=== PATIENT | male | born 1980 | race Caucasian/White ===

== ENCOUNTER 2019-12-02 23:07 | Emergency (ER) | payer MEDICAID, SELFPAY ==
--- NOTE | ~2019-12-02 | XR_ITS ---
EXAMINATION: XR chest 2V DATE: 12/02/2019 23:54 INDICATION: Cough TECHNIQUE: PA and lateral views of the chest are obtained. COMPARISON: 09/27/2011 FINDINGS: There is a subtle opacity of the left lung base. There is no pleural effusion or pneumothor ax. The cardiomediastinal silhouette is normal. The visualized bones and soft tissues are unremarkabl e. IMPRESSION: 1. Subtle left basilar opacity, consistent with atelectasis versus pneumonia. Reviewed, dictated and finalized at location A.
[2019-12-02 23:14] VITALS: BP 150/81; PULSE 89; RESP 16; TEMP 36.4; O2SAT 100
--- NOTE | 2019-12-02 23:41 | ED.URI ---
HPI - URI/Sore Throat General Chief Complaint: Upper Respiratory Infection Stated Complaint: i have weaver virus , cough Time Seen by Provider: 12/02/19 23:41 Source: patient Mode of arrival: ambulatory Limitations: no limitations History of Present Illness HPI Narrative: A 39 y/o male presents to the ED with c/o a cough and sneezing for 1 week. Pt notes he has been around his father who has been sick with bronchitis and pneumonia. Pt also c/o back pain due to his PMHx of scoliosis. He reports sweats and marijuana use, but denies numbness/tingling. Onset (ago): week(s) (1) Context: sick contacts Related Data Allergies Allergy/AdvReac Type Severity Reaction Status Date / Time olanzapine Allergy Mild FACIAL Verified 08/01/18 09:53 SWELLING naproxen Allergy Unknown FACIAL Verified 08/01/18 09:53 SWELLING Review of Systems Review of Systems: All systems reviewed & are unremarkable except as noted in HPI and below Constitutional: Comments: Reports: sweats ENT: Comments: Reports: sneezing Respiratory: Respiratory: Reports cough Musculoskeletal: Musculoskeletal: Reports back pain Neurologic: Comments: Denies: numbness/tingling PMFSH Past Medical History Medical History Abscess of left ear canal Anxiety Depression Panic attacks Scoliosis Surgical History Surgical History H/O removal of cyst Social History Social History (Updated 12/03/19 @ 00:01 by Cassie Bourne) Smoking packs per day: 1 Smoking cigarettes per day: 20.0 Smoking status: Current every day smoker Substance use: current Substance use type: marijuana Comments PCP: Physician cobol application developer Exam Narrative: Exam Narrative: GENERAL: Well-appearing, well-nourished, and in no acute distress. HEAD: Normocephalic, atraumatic. ENT: Mucous membranes moist. CHEST: Clear to auscultation. No respiratory distress. HEART: Regular rate and rhythm. Normal peripheral pulses. EXTREMITIES: Normal range of motion. No edema. Back: No midline tenderness of the thoracic or lumbar spine. No reproducible paraspinal tenderness either. SKIN: Warm, dry, no rash. NEURO: Alert and oriented x3. Course Course Emergency Course: Patient reports chronic back pain without acute injury. No neurologic impairment that she is reported either. Ordered Tylenol but patient refused and would like something stronger. Not indicated at this time. Flu negative. Chest x-ray with questionable pneumonia, given cough and symptoms he will be prescribed a Z-Eloy. Vital Signs Vital signs: Vital Signs Temperature 97.5 F L 12/02/19 23:14 Pulse Rate 89 12/02/19 23:14 Respiratory Rate 16 12/02/19 23:14 Blood Pressure 150/81 H 12/02/19 23:14 Pulse Oximetry 100 12/02/19 23:14 Temperature 97.5 F L 12/02/19 23:14 Pulse Rate 89 12/02/19 23:14 Respiratory Rate 16 12/02/19 23:14 Blood Pressure 150/81 H 12/02/19 23:14 Pulse Oximetry 100 12/02/19 23:14 MDM - URI/Sore Throat Lab Data Labs: Influenza A Screen Negative Reference Range: Negative Influenza B Screen Negative Reference Range: Negative Imaging Data Attestation: I personally reviewed and interpreted this imaging study as follows: Radiologist's impression: Chest X-ray: IMPRESSION: 1. Subtle left basilar opacity, consistent with atelectasis versus pneumonia. Discharge Plan Discharge Clinical Impression: Pneumonia Qualifiers: Pneumonia type: due to unspecified organism Laterality: unspecified laterality Lung location: unspecified part of lung Qualified Code(s): J18.9 - Pneumonia, unspecified organism Chronic back pain Qualifiers: Back pain location: low back pain Back pain laterality: unspecified Sciatica presence: without sciatica Qualified Code(s): M54.5 - Low back pain Patient Disposition: Home, Self-Care Condition: Stable Ins
--- NOTE | 2019-12-02 23:51 | PC.NURSE ---
pt down to xray
[2019-12-03] VITALS: O2SAT 98
--- NOTE | 2019-12-03 00:15 | PC.NURSE ---
pt requesting stronger pain medication. edp notified no further orders at this time.
[2019-12-03 00:30] VITALS: BP 123/88; PULSE 88; RESP 19; O2SAT 97
== END 2019-12-03 00:30 | disposition home or self-care (01) ==
PROVIDERS: Emergency Provider Emergency Medicine
DX: J18.9 Pneumonia, unspecified organism (principal); M54.5 Low back pain; F41.9 Anxiety disorder, unspecified; F32.9 Major depressive disorder, single episode, unspecified; M41.9 Scoliosis, unspecified; F17.210 Nicotine dependence, cigarettes, uncomplicated
CPT/HCPCS: 71046; 87804; 99283

== ENCOUNTER 2019-12-23 01:20 | Emergency (ER) | payer OTHER, SELFPAY ==
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
[2019-12-23 01:23] VITALS: BP 40/32; PULSE 95; RESP 19; TEMP 36.7; O2SAT 100
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
[2019-12-23 01:38] VITALS: BP 57/35; PULSE 108; RESP 19; O2SAT 99
[2019-12-23 01:45] VITALS: BP 62/28; PULSE 111; RESP 20; O2SAT 100
--- NOTE | 2019-12-23 01:55 | PC.NURSE ---
2 units of o negative blood given to patient as emergent release
--- NOTE | 2019-12-23 02:03 | PC.NURSE ---
100 mg ketamine given to patient by air evac rn.
[2019-12-23 02:10] VITALS: BP 83/55; PULSE 87; RESP 17; O2SAT 99
--- NOTE | 2019-12-23 02:15 | PC.NURSE ---
2 units of 0 negative blood for emergent release received from lab, both units hung by air evac staff
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
[2019-12-23 02:30] VITALS: PULSE 87
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
== END 2019-12-23 02:30 | disposition short-term general hospital (02) ==
PROVIDERS: Emergency Provider Emergency Medicine
DX: S21.131A Puncture wound without foreign body of right front wall of thorax without penetration into thoracic cavity, initial encounter (principal); S21.232A Puncture wound without foreign body of left back wall of thorax without penetration into thoracic cavity, initial encounter; S41.131A Puncture wound without foreign body of right upper arm, initial encounter; S22.31XA Fracture of one rib, right side, initial encounter for closed fracture; S27.2XXA Traumatic hemopneumothorax, initial encounter; F17.210 Nicotine dependence, cigarettes, uncomplicated; Y24.9XXA Unspecified firearm discharge, undetermined intent, initial encounter
CPT/HCPCS: 32551; 36415; 36430; 36556; 71045; 72170; 86900; 86901; 86920; 92950; 99291; C1729; C1751; J7050; P9016

== ENCOUNTER 2020-02-04 13:54 | Emergency (ER) | payer OTHER, SELFPAY ==
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
[2020-02-04 14:00] VITALS: BP 101/89; PULSE 104; RESP 18; TEMP 36.8; O2SAT 100
[2020-02-04 14:45] LABS: Basophils Absolute Auto 0.1 K/mm3 (0.0-0.1); Basophils Percent Auto 0.8 % (0.2-1.2); Eosinophils Absolute Auto 0.3 K/mm3 (0-0.3); Eosinophils Percent Auto 1.7 % (0-4.4); Hemoglobin 12.5 g/dL (14.0-18.0); Immature Granulocyte Absolute 0.72 K/mm3 (0.00-0.031); Lymphocytes Absolute Auto 2.63 K/mm3 (0.9-3.2); Lymphocytes Percent Auto 14.7 % (18.3-44.2); Mean Corpuscular HGB Conc 29.1 g/dl (32-36); Mean Corpuscular Hemoglobin 24.5 pg (26-34); Mean Corpuscular Volume 84.1 fl (80-100); Monocytes Percent Auto 5.8 % (2.6-8.5); Platelet Count Result 772 k/mm3 (150-375); Red Blood Count 5.11 M/mm3 (4.6-6.20); Red Cell Distribution Width 16.4 % (11.5-14.5); White Blood Count 17.9 K/mm3 (4.5-10.0)
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
[2020-02-04 14:59] LABS: Alanine Aminotransferase 23 U/L (4-50); Alkaline Phosphatase 144 U/L (38-126); Aspartate Amino Transferase 25 U/L (17-59); Bilirubin,Total 0.2 mg/dL (0.2-1.3); Blood Urea Nitrogen 14 mg/dL (9-20); Calcium 9.3 mg/dL (8.4-10.2); Carbon Dioxide 31 mmol/L (22-30); Chloride 101 mmol/L (98-107); Estimated CRCL calculation 123 ml/min; Estimated Glomerular Filt Rate > 60; Glucose 101 mg/dL (75-110); Potassium 4.1 mmol/L (3.4-5.0); Sodium 139 mmol/L (137-145)
[2020-02-04 15:04] LABS: Platelet Estimate Increased (Adequate)
[2020-02-04 15:05] LABS: Anisocytosis 2+ (NORMAL); Hypochromasia 1+ (NORMAL)
[2020-02-04 15:42] LABS: Add Urine Microscopic? YES; Appearance Urine Clear (Clear); Bacteria Urine Trace /hpf; Bilirubin Urine Negative (Negative); Budding Yeast Urine Present /hpf; Color Urine Yellow (Yellow); Glucose Urine UA Negative (Negative); Ketones Urine Negative (Negative); Leukocyte Esterase Ur Trace LEU/UL (Negative); Mucus Urine Rare /lpf; Nitrate Urine Negative (Negative); Protein Urine Negative (Negative); Specific Grav Ur 1.026 (1.001-1.035); Squamous Epithelial Cell Urine Occasional /hpf (Few); Urobilinogen Urine Negative mg/dL (<2.0)
[2020-02-04 15:49] LABS: Blood Urine Negative (Negative)
[2020-02-04 15:58] LABS: Lactic Acid Reflex 1.5 mmol/L (0.7-2.1)
[2020-02-04 16:08] VITALS: BP 104/58; PULSE 81; RESP 19; O2SAT 99
== END 2020-02-04 18:19 | disposition left against medical advice (07) ==
PROVIDERS: Emergency Medicine Emergency Medical Services; Emergency Provider General Practice
DX: L89.159 Pressure ulcer of sacral region, unspecified stage (principal); L03.312 Cellulitis of back [any part except buttock and flank]; G82.20 Paraplegia, unspecified; T14.8XXS Other injury of unspecified body region, sequela; W34.00XS Accidental discharge from unspecified firearms or gun, sequela; F17.210 Nicotine dependence, cigarettes, uncomplicated
CPT/HCPCS: 36415; 51701; 72193; 80053; 81001; 83605; 85025; 87040; 87086; 96365; 99284; A9270; J0690; Q9967

== ENCOUNTER 2020-05-17 16:57 | Observation (INO) | payer OTHER, SELFPAY ==
--- NOTE | ~2020-05-17 | XR_ITS ---
XR chest 1V portable DATE: 05/17/2020 19:04 INDICATION: Generalized chest pain. Shortness of breath TECHNIQUE: Portable AP chest on 05/17/2020 at 1851 hours COMPARISON: 01/02/2020 portable AP chest FINDINGS: Normal heart size. No hilar or mediastinal enlargement. There is minimal atelectasis at t he lung bases. The lungs otherwise appear clear. IMPRESSION: Minimal atelectasis at the lung bases; otherwise no active disease Reviewed, dictated and finalized at location A.
[2020-05-17 16:55] VITALS: BP 103/75; PULSE 103; RESP 18; TEMP 36.6; O2SAT 99
--- NOTE | 2020-05-17 17:27 | ECG_ITS ---
Measurements Intervals [place] Rate: 108 P: 40 OK: 129 QRS: 56 QRSD: 90 T: 54 QT: 315 QTc: 423 Interpretive Statements SINUS TACHYCARDIA ABNORMAL ECG Electronically Signed On 05-18-2020 7:06:18 CDT by Benedict Monae D.O.
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
[2020-05-17] MEDS: SODIUM CHLORIDE 0.9% IV 1,000 ML 999 ML IV CONT (17:47)
[2020-05-17] MEDS: ONDANSETRON INJ 4 MG/2 ML VIAL IV PUSH (17:48)
[2020-05-17] MEDS: MORPHINE SULFATE 4 MG/ML INJ IV PUSH (17:48)
[2020-05-17 18:03] LABS: Basophils Absolute Auto 0.1 K/mm3 (0.0-0.1); Basophils Percent Auto 0.7 % (0.2-1.2); Eosinophils Absolute Auto 0.3 K/mm3 (0-0.3); Eosinophils Percent Auto 1.6 % (0-4.4); Hematocrit 42.2 % (42.0-52.0); Hemoglobin 12.3 g/dL (14.0-18.0); Immature Granulocyte Absolute 0.42 K/mm3 (0.00-0.031); Immature Granulocyte Percent A 2.3 % (0-0.5); Lymphocytes Absolute Auto 3.98 K/mm3 (0.9-3.2); Lymphocytes Percent Auto 22.2 % (18.3-44.2); Mean Corpuscular HGB Conc 29.1 g/dl (32-36); Mean Corpuscular Hemoglobin 19.9 pg (26-34); Mean Corpuscular Volume 68.4 fl (80-100); Mean Platelet Volume 7.7 fl (7.4-10.4); Monocytes Absolute Auto 1.1 K/mm3 (0.1-0.6); Monocytes Percent Auto 6.3 % (2.6-8.5); Neutrophils Percent Auto 66.9 % (45.5-73.1); Platelet Count Result 805 k/mm3 (150-375); Red Blood Count 6.17 M/mm3 (4.6-6.20); Red Cell Distribution Width 20.8 % (11.5-14.5); White Blood Count 17.9 K/mm3 (4.5-10.0)
[2020-05-17 18:13] LABS: INR 1.1; Prothrombin Time 13.5 Seconds (11.1-14.7)
[2020-05-17 18:14] LABS: Alanine Aminotransferase 10 U/L (4-50); Albumin Level 3.7 g/dL (3.5-5.1); Alkaline Phosphatase 169 U/L (38-126); Anion Gap 9 mmol/L (8-16); Aspartate Amino Transferase 19 U/L (17-59); Bilirubin,Total 0.3 mg/dL (0.2-1.3); Blood Urea Nitrogen 13 mg/dL (9-20); Calcium 9.2 mg/dL (8.4-10.2); Carbon Dioxide 30 mmol/L (22-30); Chloride 97 mmol/L (98-107); Estimated CRCL calculation 140 ml/min; Estimated Glomerular Filt Rate > 60; Glucose 110 mg/dL (75-110); Partial Thromboplastin Time 41.5 SECONDS (22.3-36.8); Potassium 3.8 mmol/L (3.4-5.0); Sodium 136 mmol/L (137-145)
[2020-05-17 18:17] LABS: Platelet Estimate Increased (Adequate)
[2020-05-17 18:18] LABS: Hypochromasia 1+ (NORMAL); Ovalocytes 1+ (NORMAL)
[2020-05-17 18:20] LABS: Add Urine Microscopic? YES; Amorphous Sediment Urine Few; Appearance Urine Cloudy (Clear); Bacteria Urine 1+ /hpf; Bilirubin Urine Negative (Negative); Blood Urine 1+ (Negative); Color Urine Yellow (Yellow); Glucose Urine UA Negative (Negative); Ketones Urine Negative (Negative); Leukocyte Esterase Ur 3+ LEU/UL (Negative); Mucus Urine Rare /lpf; Nitrate Urine Positive (Negative); Protein Urine 1+ mg/dL (Negative); RBC Urine 21-50 /hpf (0-2); Squamous Epithelial Cell Urine Moderate /hpf (Few); Urobilinogen Urine Negative mg/dL (<2.0); WBC Urine >75 /hpf
[2020-05-17 18:26] LABS: NT Pro B Type Natriuretic Pept 21 PG/ML (5-100); Troponin I < 0.012 ng/mL (0.000-0.034)
[2020-05-17 18:29] LABS: Barbiturate Screen Urine Negative (Negative); Benzodiazepines Screen Urine Positive (Negative)
[2020-05-17 18:31] LABS: Cannabinoid Screen Urine Positive (Negative); Cocaine Screen Urine Negative (Negative); Methadone Screen Urine Negative (Negative); Opiate Screen Urine Negative (Negative); Phencyclidine Screen Urine Negative (Negative)
[2020-05-17 19:16] LABS: Amphetamine Screen Urine Positive (Negative)
[2020-05-17 19:20] VITALS: BP 107/68; PULSE 100; RESP 18; O2SAT 98
--- NOTE | 2020-05-17 19:20 | PC.NURSE ---
report received at this time. pt resting on stretcher talking on cell phone. pt VS stable, RR even and unlabored. updated on poc.
--- NOTE | 2020-05-17 19:32 | PC.NURSE ---
pt provided with water at this time.
[2020-05-17 21:14] LABS: Troponin I < 0.012 ng/mL (0.000-0.034)
[2020-05-17 21:35] VITALS: PULSE 99; RESP 18; O2SAT 100
--- NOTE | 2020-05-17 21:40 | PC.NURSE ---
pt transported up to the floor at this time with all belongings. prior to transport pt updated on poc. pt was asking what the plan was and when the doctor was going to see him. this RN explained he is going to be admitted for the chronic ulcer on his buttocks and for a consult. pt states, as long as I'm not transferred to [facility] I don't care. pt in NAD in transport and is not c/o any pain. upon getting up to the floor pt states, if I fall on the floor I'm just going to get more money from this hospital. this RN assured pt he is not going to fall on the floor and we would have more help to transfer the patient to the bed. pt moved over to bed with no difficulty and in NAD.
[2020-05-17 21:45] VITALS: BP 112/58; PULSE 94; RESP 20; TEMP 36.3; O2SAT 100
[2020-05-17 22:00] VITALS: BP 114/80; PULSE 102; RESP 18; TEMP 36.8; O2SAT 100
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
--- NOTE | 2020-05-18 01:16 | PC.NURSE ---
When patient arrived to floor from ED and staff was assisting him off ED stretcher to bed, pt states, Here is payday from me, I know you are going to drop me cause I know you 2 nurses are not smart enough to lock this stretcher. Transferred patient safely to bed. Pt immediately began yelling and cussing at staff saying, No one has done anything for me, I have been here all day and not one time have I seen a doctor or a nurse.' Attempted to explain to pt that this junior technical writer was his nurse and he states, I will take you to small claims court too, you have let me lay here all day and get this sore on my ass. Pt refused assessment, meds, and treatment. Multiple staff at different times attempted to administer care and patient kept denying all care. Charge nurse and House Charge notified. Ngoc RIDDLE notified and was in patient's room multiple times. Pt continue to refuse care and just wanted to be picked up by his girlfriend. Pt left AMA at 0005.
== END 2020-05-18 00:05 | disposition left against medical advice (07) ==
LOC: ANHED 18:42 → ANH3MEDSUR 20:15
PROVIDERS: Admitting Provider Internal Medicine; Emergency Provider Emergency Medicine; Visit Provider Internal Medicine
DX: N39.0 Urinary tract infection, site not specified (principal); L89.104 Pressure ulcer of unspecified part of back, stage 4; R33.9 Retention of urine, unspecified; G82.20 Paraplegia, unspecified; F41.9 Anxiety disorder, unspecified; F32.9 Major depressive disorder, single episode, unspecified; G62.9 Polyneuropathy, unspecified; Z91.19 Patient's noncompliance with other medical treatment and regimen
CPT/HCPCS: 36415; 51701; 71045; 80053; 80307; 81001; 83880; 84484; 85025; 85610; 85730; 87086; 87088; 93005; 96361; 96365; 96375; 99285; G0378; G0379; J0696; J2270; J2405; J7030

== ENCOUNTER 2020-10-14 22:20 | Inpatient (IN) | payer OTHER, SELFPAY ==
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
[2020-10-14 22:40] VITALS: BP 102/72; PULSE 103; RESP 20; TEMP 36.6; O2SAT 100
--- NOTE | 2020-10-14 22:48 | ECG_ITS ---
Measurements Intervals [place] Rate: 102 P: 28 [place]: 131 QRS: 51 QRSD: 91 T: 53 QT: 332 QTc: 433 Interpretive Statements SINUS TACHYCARDIA BASELINE ARTIFACT- I, II BORDERLINE ECG Electronically Signed On 10-15-2020 6:48:49 [employer] by Benedict Monae D.O.
[2020-10-14 23:00] VITALS: BP 103/67; PULSE 103; RESP 20; O2SAT 100
--- NOTE | 2020-10-14 23:46 | PC.NURSE ---
Patient refused to let me draw his blood, because i will not give him water. he also said he will sign out because he can't get water.
[2020-10-15] VITALS (9 sets, daily range): BP systolic 92–106; BP diastolic 51–66; PULSE 80–98; RESP 16–18; TEMP 36.3–36.4; O2SAT 96–100; BMI 34.1
[2020-10-15] MEDS: KETOROLAC 15 MG/ML VIAL (*BKC) IV PUSH (00:31)
[2020-10-15 00:54] LABS: Hematocrit 26.5 % (42.0-52.0); Hemoglobin 8.2 g/dL (14.0-18.0); Mean Corpuscular HGB Conc 30.9 g/dl (32-36); Mean Corpuscular Hemoglobin 20.7 pg (26-34); Mean Corpuscular Volume 66.9 fl (80-100); Platelet Count Result 727 k/mm3 (150-375); Red Blood Count 3.96 M/mm3 (4.6-6.20); Red Cell Distribution Width 17.6 % (11.5-14.5); White Blood Count 35.1 K/mm3 (4.5-10.0)
[2020-10-15 01:00] LABS: Add Urine Microscopic? YES; Appearance Urine Turbid (Clear); Bilirubin Urine Negative (Negative); Blood Urine 2+ (Negative); Color Urine Yellow (Yellow); Glucose Urine UA Negative (Negative); Ketones Urine Negative (Negative); Leukocyte Esterase Ur 3+ LEU/UL (Negative); Nitrate Urine Negative (Negative); Protein Urine 2+ mg/dL (Negative); RBC Urine >75 /hpf (0-2); Specific Grav Ur 1.012 (1.001-1.035); Urobilinogen Urine Negative mg/dL (<2.0); WBC Clumps Urine Present /HPF; WBC Urine >75 /hpf
[2020-10-15 01:05] LABS: Alanine Aminotransferase 9 U/L (4-50); Albumin Level 2.4 g/dL (3.5-5.1); Alkaline Phosphatase 219 U/L (38-126); Anion Gap 13 mmol/L (8-16); Aspartate Amino Transferase 20 U/L (17-59); Bilirubin,Total 0.3 mg/dL (0.2-1.3); Blood Urea Nitrogen 97 mg/dL (9-20); Calcium 7.5 mg/dL (8.4-10.2); Carbon Dioxide 20 mmol/L (22-30); Chloride 98 mmol/L (98-107); Estimated CRCL calculation 10 ml/min; Estimated Glomerular Filt Rate 6; Glucose 105 mg/dL (75-110); Sodium 131 mmol/L (137-145)
[2020-10-15 01:07] LABS: Lactic Acid Reflex 1.7 mmol/L (0.7-2.1)
[2020-10-15 01:17] LABS: Troponin I < 0.012 ng/mL (0.000-0.034)
[2020-10-15 01:20] LABS: Band Neutrophils Percent 9 % (0-6); Lymphocytes Absolute Manual 1.75 K/mm3 (1.1-4.5); Monocytes Absolute Manual 1.05 K/mm3 (0.1-0.90); Monocytes Percent Manual 3 % (3-9); Neutrophils Absolute Manual 32.29 K/mm3 (1.3-6.7); Neutrophils Percent Manual 83 % (46-73); Platelet Estimate Adequate (Adequate); Total Cells Counted 100
[2020-10-15 01:22] LABS: Anisocytosis 1+ (NORMAL)
[2020-10-15] MEDS: SODIUM CHLORIDE 0.9% IV 1,000 ML 999 ML IV CONT ×2 (01:45→02:45)
--- NOTE | 2020-10-15 01:45 | PC.NURSE ---
Pt had a total output of 1825ccs of recorded urine output. Pt arrived with tidwell catheter in place that was not having any urine output. When I started to deflate the 10cc balloon from old tidwell urine started to drain around inserted catheter. Once balloon was fully deflated the entire catheter was pushed out of the pt's penis by the force of the urine coming out of the bladder. Urine drained naturally at an uncontrollable speed. 8 towels were filled with urine and 5 chux. Once urine stream became less forceful a new tidwell kit was opened and a 16French tidwell catheter was placed. The catheter was pushed all the way to the very end of the catheter and a little urine became present in the tubing. My PCT assisting me, Maren inflated the balloon with 10ccs while I was holding the catheter in place. The catheter then pushed out naturally and started to drain more urine. Catheter was put in place with leg stabilization device. Upon getting CT reading, MD Ramirez instructed me to deflate the balloon again and push catheter all the way back into the bladder and reinflate the balloon with the 10CCs. Procedure was done per MD Ramirez's verbal order with read back with no complications. Urine draining more briskly after readjustment of catheter.
[2020-10-15 01:46] LABS: Lipase < 10 U/L (23-300)
[2020-10-15] MEDS: metroNIDAZOLE 500 MG/ISO 100ML 500 MG/100 ML BAG 100 MG IVPB (03:02)
[2020-10-15] MEDS: SODIUM CHLORIDE 0.9% IV 1,000 ML 250 ML IV CONT (04:28)
[2020-10-15] MEDS: SODIUM CHLORIDE 0.9% IV 500 ML 999 ML IV CONT (05:35)
--- NOTE | 2020-10-15 06:26 | ADMGEN ---
This patient, Nish Kline, was admitted to 2 Medical Room 248-01 @ 0330 10/15/20. Patient/family oriented to hospital policies and general routines including ID bracelet, bed and alarms, visiting hours, pain management, procedures, bathroom and other care routines, personal items, smoking policy, room service/diet, and visiting hours. Information on how to activate the Rapid Response Team has been discussed. Patient/Family are encouraged to report perceived risks to care and to ask questions if they do not understand what they are told or what they should do.
--- NOTE | 2020-10-15 06:37 | PC.NURSE ---
when questioning patient on his home medications pt states he is unable to afford the medications prescribed to him. He states that he uses [facility]. Per pharmacist with [employer] pt has not had any medications filled since February of 2020.
[2020-10-15] MEDS: SODIUM CHLORIDE 0.9% IV 1,000 ML 100 ML IV CONT (09:27)
--- NOTE | 2020-10-15 09:30 | PC.NURSE ---
Patient refuses to allow this nurse to assess him this AM. Patient states Fuck you and that doctor for waking me up. You aren't going to touch me. I am calling my old lady and leaving. Give me my papers to leave.
--- NOTE | 2020-10-15 10:20 | PC.NURSE ---
Pt alert and oriented to person, place, time, & situation. Spoke with patient regarding understanding of his condition and the risks associated with Acute Renal Failure, Sepsis, and Decubitus Ulcer. Pt stated that I know that I could and I'm okay with that. I can't stay here any longer. I talked to my old lady and she's coming to pick me up. She won't listen to you. I run the show. I wear the pants. Pt wearing hospital gown. Pt encouraged to listen to care team. Pt continues to interrupt when nurse, patient care nursing assistant begin speaking.
--- NOTE | 2020-10-15 10:40 | PC.NURSE ---
Patient notified of risks of leaving AMA. Dr. Kimball notified. Educated patient on need to drink plenty of fluids and follow up with primary. Patient signed AMA form. Staff assisted patient into wheelchair with appropriate safe-patient handling equipment.
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
--- NOTE | 2020-10-15 14:04 | PC.NURSE ---
Pt unwilling to share the name of his spouse/significant other. He referred to her as his old lady. This person arrived at the hospital via personal vehicle to pick him up. When she arrived, charge nurse spoke with her explaining that he was not being discharged and that he may need to be transported to another hospital due to his very serious health problems. The patient was transferred from his hospital bed to a wheelchair via a sliding board, maxi slides, bed pad using a gait belt and two nurses and three personal care techs to slide him from the wheelchair to the backseat using the above mentioned assistive devices to ensure a safe transfer across the wide gap between the wheelchair and the seat of the chair. The patient was laid on his back in the backseat and then turned to a sitting position with his legs lifted into the car. While being transferred, the patient made multiple complaints about how terrible the care at this hospital is and then he told us to leave him alone, which we did.
== END 2020-10-15 10:45 | disposition left against medical advice (07) | DRG 720 ==
LOC: ANHED 10-15 02:39 → ANH2MED 10-15 04:24
PROVIDERS: Admitting Provider Family Medicine; Emergency Provider Emergency Medicine; Visit Provider Family Medicine
DX: A41.9 Sepsis, unspecified organism (principal); N17.0 Acute kidney failure with tubular necrosis; L89.104 Pressure ulcer of unspecified part of back, stage 4; G82.20 Paraplegia, unspecified; N30.01 Acute cystitis with hematuria; R33.9 Retention of urine, unspecified; N13.9 Obstructive and reflux uropathy, unspecified; K52.9 Noninfective gastroenteritis and colitis, unspecified; F17.210 Nicotine dependence, cigarettes, uncomplicated; F41.9 Anxiety disorder, unspecified; Z28.21 Immunization not carried out because of patient refusal; Z91.19 Patient's noncompliance with other medical treatment and regimen
CPT/HCPCS: 36415; 74176; 80053; 81001; 83605; 83690; 84484; 85025; 87077; 87086; 87088; 87186; 93005; 96365; 96375; 99285; J0696; J1885; J7030; J7040

== ENCOUNTER 2021-12-19 13:07 | Emergency (ER) | payer OTHER, SELFPAY ==
--- NOTE | ~2021-12-19 | XR_ITS ---
EXAMINATION: XR chest 1V portable EXAM DATE: 12/19/2021 13:31 INDICATION: SOB TECHNIQUE: Portable AP frontal chest x-ray was obtained. Comparison is made to prior examination from 12/19/2021. FINDINGS: Small regions of linear bibasilar scarring or atelectasis. The lungs are otherwise clear. There are no pleural effusions. The cardiomediastinal silhouette is within normal limits. There is no pneumothorax suspected. The bones and soft tissues are unremarkable. IMPRESSION: Subsegmental bibasilar atelectasis or scarring. Reviewed, dictated and finalized at location A.
--- NOTE | ~2021-12-19 | CT_ITS ---
EXAMINATION: CT abdomen pelvis w con EXAM DATE: 12/19/2021 16:01 INDICATION: abd pain, large ulcers. TECHNIQUE: Spiral CT of the abdomen and pelvis was performed following intravenous injection of 100 m L Omnipaque 350. Axial, coronal and sagittal images of the abdomen and pelvis were reviewed. The do se-length product (DLP) for this examination was 653.77 mGy-cm. The exposure was tailored according to patient size (auto mA exposure control), and iterative reconstruction (ASIR) was used as additiona l dose reduction technique. Comparison is made to prior examination from 10/15/2020. FINDINGS: There is midline abdominal wall dehiscence, probably healing by secondary intention. There is a fluid collection along the greater curvature of the stomach body indicated on sagittal image 117, axial im age 61 through 84. This measures about 1.5 cm diameter by about 12 cm in craniocaudal dimension. Ther e is another lens-shaped fluid collection along the left side of the peritoneum measuring 6.5 x 1.5 x 9.0 cm (axial image 104, coronal image 76). Slightly smaller left pelvic fluid collection indicated on axial image 137, coronal image 78. These could be abscesses, hematomas, seromas. There is large am ount of colonic stool. No free intraperitoneal gas. No small bowel obstruction. Normal appendix. There is a Florian balloon/catheter in the urethra, small balloon appears to be inflated in expected lo cation of the bulbous urethra. This catheter tip does not make it to the bladder. There is large deep sacral decubitus ulceration. Liver, gallbladder, spleen, adrenal glands, pancreas are unremarkable. Mesenteric vasculature enhance s as expected. Kidneys enhance symmetrically, no hydronephrosis. IMPRESSION: 1. At least 3 loculated abdominal fluid collections, differential diagnosis including loculated absc esses, postoperative hematomas, seromas. No free intraperitoneal gas. 2. Large amount of colonic stool and gas. 3. Suprapubic catheter, another urethral catheter with tip of Florian balloon below the bladder projec ting toward the rectum (Florian had similar position on prior study). 4. Chronic sacral decubitus ulceration. 5. Other chronic findings. Reviewed, dictated and finalized at location A. IMPRESSION: 1. At least 3 loculated abdominal fluid collections, differential diagnosis in cluding loculated abscesses, postoperative hematomas, seromas. No free intraper itoneal gas. 2. Large amount of colonic stool and gas. 3. Suprapubic catheter, another urethral catheter with tip of Florian balloon be low the bladder projecting toward the rectum (Florian had similar position on ilana or study). 4. Chronic sacral decubitus ulceration. 5. Other chronic findings.
[2021-12-19 13:13] VITALS: BP 110/67; PULSE 78; RESP 18; TEMP 36.8; O2SAT 98
--- NOTE | 2021-12-19 13:38 | ED.GENADULT ---
HPI - General Adult General Chief complaint: Shortness of Breath/Dyspnea Stated complaint: cp/sob Time Seen by Provider: 12/19/21 13:13 Source: patient Mode of arrival: ambulatory Limitations: no limitations History of Present Illness HPI narrative: 41-year-old male presents emergency room by ambulance from home. Patient is got multiple medical issues. He recently had some type of bladder surgery. He is got suprapubic catheter in place. Skin diffuse decubitus ulcers which he states he is having diarrhea and feels like they are all infected now. He supposed to be on oxygen when EMS arrived he was not on home oxygen. He has got ulcerations to his lower extremities to his lower abdominal wall, into his buttock, and large open ulceration to the sacrum and lower back region. Denies any fevers. Related Data Home Medications Medication Instructions Recorded Confirmed acetaminophen [Tylenol] 325 - 500 mg PO Q6-8H PRN 02/04/20 amoxicillin-pot clavulanate 1 tablet PO BID 02/04/20 apixaban [Eliquis] 5 mg PO DAILY 02/04/20 bisacodyl 10 mg [place] DAILY PRN 02/04/20 docusate sodium [Colace] 100 mg PO DAILY 02/04/20 gabapentin 600 mg PO TID 02/04/20 hydroxyzine HCl 25 mg PO Q4-8H PRN 02/04/20 levofloxacin [Levaquin] 500 mg PO DAILY 02/04/20 methocarbamol 75 mg PO Q6-8H PRN 02/04/20 methocarbamol mg 02/04/20 Allergies Allergy/AdvReac Type Severity Reaction Status Date / Time olanzapine Allergy Mild FACIAL Verified 05/17/20 17:01 SWELLING naproxen Allergy Unknown FACIAL Verified 05/17/20 17:01 SWELLING Review of Systems Review of Systems: CONSTITUTIONAL: Denies fever, chills, or sweats. EYES: Denies visual changes, redness, or discharge. ENT: Denies rhinorrhea, congestion, sore throat, or otalgia. CARDIOVASCULAR: Denies chest pain, palpitations, or edema. RESPIRATORY: Denies cough or dyspnea. GASTROINTESTINAL: Denies nausea, vomiting, or diarrhea. Complaining of diffuse abdominal pain GENITOURINARY: Florian catheter and suprapubic catheter in place. He is got open ulcerations to his scrotum SKIN: Denies rash or itching. MUSCULOSKELETAL: Denies back pain, joint pain, or myalgia. NEUROLOGIC: Denies headache, numbness, or weakness. PSYCHIATRIC: Denies anxiety or depression. [facility] Past Medical History Medical History Abscess of left ear canal Anxiety Depression Neuropathy Panic attacks Paraplegia Sacral ulcer Scoliosis Urinary retention patient straight caths himself every couple hours. Surgical History Surgical History H/O removal of cyst Spinal surgery in prior 3 months Family History Family History Mother due to respiratory arrest Father Throat cancer Social History Social History Social History: the patient admitted to smoking marijuana. He stated that he does not use meth for amphetamines but occasionally he does take his son's Adderall. Patient stated that he does take Xanax at times. He smokes a pack a cigarettes a day. He lives with his significant other and has 2 children. He denies any alcohol use. His significant other is a durable power pump attendant for healthcare. The patient desires to be a full code. Smoking packs per day: 2 Smoking cigarettes per day: 40.0 Years smoked: 24 Smoking pack-years: 48.00 Smoking status: Current every day smoker Tobacco type: cigarettes Alcohol intake: unknown Substance use: current Substance use type: marijuana Other substance usage details: cocaine in past Last use: last smoked marijuana couple weeks ago Spiritual care concerns: No Exam Narrative: APPEARANCE: Patient is very unkempt. Appears to be in some pain. Head normocephalic and atraumatic. EYES: PERRLA/EOMI, conjunctivae very clear. NOSE: Normal
[2021-12-19] MEDS: MORPHINE SULFATE (*CRX) 4 MG/ML INJ IV PUSH ×2 (14:11→18:20)
[2021-12-19] MEDS: ONDANSETRON INJ 4 MG/2 ML VIAL IV PUSH (14:11)
[2021-12-19] MEDS: SODIUM CHLORIDE 0.9% IV 1,000 ML 999 ML IV CONT (14:12)
--- NOTE | 2021-12-19 14:15 | PC.NURSE ---
Pt states he is currently on hospice. Unsure what company he is currently using. JONH garcia made aware.
--- NOTE | 2021-12-19 14:20 | PC.NURSE ---
Mirtha , break up worker at hospice, called at [phone], redirected to emergency number at [phone]
[2021-12-19 14:42] LABS: Basophils Absolute Auto 0.1 K/mm3 (0.0-0.1); Basophils Percent Auto 0.7 % (0.2-1.2); Eosinophils Absolute Auto 0.1 K/mm3 (0-0.3); Eosinophils Percent Auto 0.5 % (0-4.4); Hematocrit 32.8 % (42.0-52.0); Hemoglobin 9.1 g/dL (14.0-18.0); Immature Granulocyte Absolute 0.14 K/mm3 (0.00-0.031); Immature Granulocyte Percent A 1.2 % (0-0.5); Lymphocytes Absolute Auto 1.87 K/mm3 (0.9-3.2); Lymphocytes Percent Auto 15.5 % (18.3-44.2); Mean Corpuscular HGB Conc 27.7 g/dl (32-36); Mean Corpuscular Hemoglobin 23.8 pg (26-34); Mean Corpuscular Volume 85.6 fl (80-100); Mean Platelet Volume 8.1 fl (7.4-10.4); Neutrophils Percent Auto 74.1 % (45.5-73.1); Platelet Count Result 645 k/mm3 (150-375); Red Blood Count 3.83 M/mm3 (4.6-6.20); Red Cell Distribution Width 25.7 % (11.5-14.5); White Blood Count 12.1 K/mm3 (4.5-10.0)
[2021-12-19 14:54] LABS: Alanine Aminotransferase 10 U/L (4-50); Albumin Level 3.3 g/dL (3.5-5.1); Alkaline Phosphatase 275 U/L (38-126); Anion Gap 9 mmol/L (8-16); Aspartate Amino Transferase 20 U/L (17-59); Bilirubin,Total 0.1 mg/dL (0.2-1.3); Blood Urea Nitrogen 14 mg/dL (9-20); Calcium 8.3 mg/dL (8.4-10.2); Carbon Dioxide 26 mmol/L (22-30); Chloride 96 mmol/L (98-107); Estimated CRCL calculation 140 ml/min; Estimated Glomerular Filt Rate > 60; Glucose 100 mg/dL (65-110); Potassium 4.1 mmol/L (3.4-5.0); Sodium 131 mmol/L (137-145)
[2021-12-19 15:02] LABS: Anisocytosis 2+ (NORMAL); Hypochromasia 1+ (NORMAL); Platelet Estimate Increased (Adequate); Target Cells 1+ (NORMAL)
[2021-12-19 15:19] LABS: INR 1.2; Prothrombin Time 14.4 Seconds (11.1-14.7)
[2021-12-19 15:20] LABS: Partial Thromboplastin Time 33.1 SECONDS (22.3-36.8)
[2021-12-19 15:46] VITALS: BP 112/65; PULSE 65; RESP 18; O2SAT 98
--- NOTE | 2021-12-19 15:48 | PC.NURSE ---
Pt cleaned up per request. CT called.
--- NOTE | 2021-12-19 15:51 | PC.NURSE ---
Hospice called and updated. They state that they have been unable to see him at home recently due to caregiving issues and a dog on premise. They state pt is on hospice d/t sepsis, osteomylitis, and wounds.
--- NOTE | 2021-12-19 16:11 | PC.NURSE ---
Pt understands he will be removed from hospice care at this time.
[2021-12-19 17:29] VITALS: BP 117/75; PULSE 97; RESP 18; O2SAT 100
--- NOTE | 2021-12-19 17:29 | PC.NURSE ---
Pt states he is willing to stay on hospice. JONH Johnson states he will call hospice back. Pt understands need to have family at home and dog put away.
--- NOTE | 2021-12-19 18:20 | PC.NURSE ---
[address] [id number]
[2021-12-19 18:59] VITALS: BP 102/88; PULSE 78; RESP 18; O2SAT 98
--- NOTE | 2021-12-19 19:04 | PC.NURSE ---
[facility] states they have an 2300 ETA
--- NOTE | 2021-12-19 20:24 | PC.NURSE ---
Spoke with patients family regarding plan of care, need for someone to be with patient and transport home.
[2021-12-19 21:00] VITALS: BP 102/88; PULSE 70; RESP 16; O2SAT 98
--- NOTE | 2021-12-19 21:21 | PC.NURSE ---
pt given juice and ice chips. Awaiting EMS at this time.
[2021-12-19 23:10] VITALS: RESP 16; O2SAT 98
--- NOTE | 2021-12-19 23:12 | PC.NURSE ---
Assuming care of pt.
--- NOTE | 2021-12-19 23:40 | PC.NURSE ---
called [facility] to update eta and it is now 100AM [facility]
[2021-12-20 00:46] VITALS: BP 104/66; PULSE 87; RESP 18; O2SAT 99
== END 2021-12-20 00:48 | disposition hospice, home (50) ==
PROVIDERS: Emergency Provider Emergency Medicine
DX: F19.10 Other psychoactive substance abuse, uncomplicated (principal); L89.154 Pressure ulcer of sacral region, stage 4; Z99.81 Dependence on supplemental oxygen; Z51.5 Encounter for palliative care; F41.9 Anxiety disorder, unspecified; F32.A Depression, unspecified; G62.9 Polyneuropathy, unspecified; G82.20 Paraplegia, unspecified; F17.210 Nicotine dependence, cigarettes, uncomplicated; Z79.899 Other long term (current) drug therapy; Z79.01 Long term (current) use of anticoagulants; Z88.8 Allergy status to other drugs, medicaments and biological substances; Z74.01 Bed confinement status
CPT/HCPCS: 36415; 71045; 74177; 80053; 83605; 85025; 85610; 85730; 87040; 96361; 96374; 96375; 96376; 99284; J2270; J2405; J7030; Q9967

== ENCOUNTER 2022-06-06 16:00 | Inpatient (IN) | payer OTHER, SELFPAY ==
[2022-06-06] VITALS (20 sets, daily range): BP systolic 101–129; BP diastolic 60–72; PULSE 103–117; RESP 9–23; TEMP 36.7; O2SAT 91–99; BMI 24.6; BMI 26.6
--- NOTE | ~2022-06-06 | XR_ITS ---
EXAMINATION: XR foot LT 2V DATE: 06/06/2022 22:53 INDICATION: Left foot infection. TECHNIQUE: 2 views of left foot were obtained. COMPARISON: None. FINDINGS: Bone alignment is normal. No fracture. There is diffuse osteopenia. There is mild osteoarth ritis of first metatarsophalangeal joint. IMPRESSION: 1. No evidence of osteomyelitis. Osteopenia decreases sensitivity. Reviewed, dictated and finalized at location A.
--- NOTE | ~2022-06-06 | XR_ITS ---
EXAMINATION: XR foot RT 2V DATE: 06/06/2022 22:53 INDICATION: Right foot infection. TECHNIQUE: 2 views of right foot were obtained. COMPARISON: None. FINDINGS: Bone alignment is normal. No fracture. There is diffuse osteopenia. There is mature periost eal new bone formation of diaphysis of fourth metacarpal, likely an old healed fracture. There is mil d osteoarthritis of first metatarsophalangeal joint. IMPRESSION: 1. No evidence of osteomyelitis. Sensitivity is decreased by osteopenia. Reviewed, dictated and finalized at location A.
--- NOTE | ~2022-06-06 | US_ITS ---
US scrotum doppler INDICATION: Testicular wound with drainage TECHNIQUE: Testicular sonogram utilizing grayscale and color Doppler FINDINGS: There is mild subcutaneous edema. The testes are normal in size and appearance. No focal l esions are seen. The right testes measures 3.3 x 2.6 x 2.1 cm centimeters, and the left testis measur es 3.5 x 2 x 2.2 cm cm. There is normal vascular flow to both testes. There are bilateral epididymal cysts. Moderate bilateral hydroceles. No evidence for varicocele. IMPRESSION: 1. Moderate bilateral hydroceles. 2: Mild subcutaneous edema. 3: Bilateral epididymal cysts. Reviewed, dictated and finalized at location A.
--- NOTE | ~2022-06-06 | XR_ITS ---
EXAMINATION: XR cystogram DATE: 06/11/2022 11:00 INDICATION: Possible fistula TECHNIQUE: Water-soluble contrast was gravity-infused through the patient's Florian catheter. Multiple fluoroscopic images were obtained. Fluoroscopy exposure time was 1.6 minutes. The DAP for this proced ure was 12.64 Gycm2. COMPARISON: CT, 06/07/2022 FINDINGS: Examination is limited by patient paralysis below the waist. No definite fistula is identif ied. Contrast appears to leak around the Florian catheter rather than through an identifiable fistula. IMPRESSION: 1. No definite fistula identified. Reviewed, dictated and finalized at location A.
--- NOTE | ~2022-06-06 | CT_ITS ---
EXAMINATION: CT abdomen pelvis w con DATE: 06/07/2022 09:12 INDICATION: Abdominal wall wound. TECHNIQUE: Computed tomography (CT) of the abdomen and pelvis was performed with 100 mL Omnipaque 350 intravenous contrast. Automated exposure control and iterative reconstruction technique were employe d. The dose-length product was 581.70 mGy-cm. COMPARISON: CT abdomen and pelvis 12/19/2021 FINDINGS: The visualized portions of the lung bases demonstrate dependent airspace and groundglass op acities. There is a staple line in right lower lobe. There is mild emphysema. There are chronic airsp donna opacities and parenchymal calcifications in lateral segment right middle lobe. There is mild atel ectasis in lingula. There are parenchymal calcifications in the dependent left lower lobe. No pleural effusion. The heart size is normal. No pericardial effusion. The liver is normal. The gallbladder is distended. The spleen, pancreas, and adrenal glands are normal. There are bilateral percutaneous nep hrostomy tubes in expected positions. There is urothelial thickening and enhancement bilaterally. The re is diffuse bladder wall thickening. The bladder is not well distended. There are no dilated loops of bowel. The appendix is normal. There is mild reactive pelvic lymphadenopathy. There is no free int raperitoneal fluid. There is absence of subcutaneous fat in the anterior lower abdomen at the midline . There are decubitus ulcers overlying the ischial tuberosities and sacrum. There is chronic remodeli ng and sclerosis of the ischial tuberosities. There are chronic erosions and sclerosis involving the sacrum and posterior left ilium. There are old healed bilateral rib fractures. There is mild thoracol umbar spondylosis. IMPRESSION: 1. Dependent airspace and groundglass opacities in the lower lobes, consistent with pneumonia. 2. Cystitis and bilateral pyelitis. 3. Chronic decubitus ulcers with chronic osteomyelitis of the ischial tuberosities, sacrum, and poste rior left ilium. Reviewed, dictated and finalized at location A. IMPRESSION: 1. Dependent airspace and groundglass opacities in the lower lobes, consistent with pneumonia. 2. Cystitis and bilateral pyelitis. 3. Chronic decubitus ulcers with chronic osteomyelitis of the ischial tuberosit ies, sacrum, and posterior left ilium.
--- NOTE | ~2022-06-06 | XR_ITS ---
EXAMINATION: XR chest 1V portable Exam Date/Time: 06/06/2022 16:30 CDT HISTORY: cough Comparison: X-ray chest and CT abdomen pelvis 12/19/2021. RESULT: Lines, tubes, and devices: None. Lungs and pleura: Bibasilar pleural calcification and scarring, otherwise clear. Cardiomediastinal silhouette: Stable. Other: No acute osseous or upper abdominal finding. IMPRESSION: No acute cardiopulmonary process. Reviewed, dictated and finalized at location K.
--- NOTE | 2022-06-06 16:18 | ECG_ITS ---
Measurements Intervals Wiley Rate: 107 P: 60 DC: 138 QRS: 36 QRSD: 100 T: 65 QT: 329 QTc: 440 Interpretive Statements SINUS TACHYCARDIA DELAYED PRECORDIAL R/S TRANSITION BORDERLINE ECG COMPARED TO ECG 10/14/2020 22:56:49 NO SIGNIFICANT CHANGES Electronically Signed On 06-06-2022 20:14:59 CDT by Benedict Monae D.O.
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
[2022-06-06 16:48] LABS: Appearance Urine Cloudy (Clear); Bilirubin Urine 1+ (Negative); Color Urine Yellow (Yellow); Glucose Urine UA Negative (Negative); Ketones Urine Negative (Negative); Leukocyte Esterase Ur 2+ LEU/UL (Negative); Nitrate Urine Negative (Negative); Protein Urine 3+ mg/dL (Negative); Urobilinogen Urine 0.2 mg/dL (<2.0); pH Urine >=9.0 (5.0-9.0)
[2022-06-06 16:54] LABS: Amorphous Sediment Urine Moderate; Bacteria Urine Trace /hpf; Mucus Urine Few /lpf; RBC Urine 21-50 /hpf (0-2); Squamous Epithelial Cell Urine Rare /hpf (Few)
[2022-06-06 16:57] LABS: Add Urine Microscopic? YES; Blood Urine Trace-Intact (Negative)
[2022-06-06 17:36] LABS: Hematocrit 38.4 % (42.0-52.0); Hemoglobin 10.8 g/dL (14.0-18.0); Mean Corpuscular HGB Conc 28.1 g/dl (32-36); Mean Corpuscular Hemoglobin 19.3 pg (26-34); Mean Corpuscular Volume 68.4 fl (80-100); Platelet Count Result 600 k/mm3 (150-375); Red Blood Count 5.61 M/mm3 (4.6-6.20); Red Cell Distribution Width 19.9 % (11.5-14.5); White Blood Count 36.9 K/mm3 (4.5-10.0)
[2022-06-06 17:49] LABS: Lactic Acid Reflex 1.9 mmol/L (0.7-2.0)
[2022-06-06 17:50] LABS: INR 1.1; Prothrombin Time 13.9 Seconds (11.1-14.7)
[2022-06-06 17:51] LABS: Partial Thromboplastin Time 41.5 SECONDS (22.3-36.8)
[2022-06-06 17:57] LABS: Alanine Aminotransferase 16 U/L (6-50); Albumin Level 3.7 g/dL (3.5-5.1); Alkaline Phosphatase 174 U/L (38-126); Anion Gap 16 mmol/L (8-16); Aspartate Amino Transferase 21 U/L (17-59); Bilirubin,Total 0.2 mg/dL (0.2-1.3); Blood Urea Nitrogen 15 mg/dL (9-20); Carbon Dioxide 24 mmol/L (22-30); Chloride 97 mmol/L (98-107); Estimated Glomerular Filt Rate > 60; Glucose 181 mg/dL (65-110); Potassium 3.7 mmol/L (3.4-5.0); Sodium 137 mmol/L (137-145)
[2022-06-06 18:02] LABS: CRP 21.8 mg/dL (<1.0)
[2022-06-06 18:09] LABS: Band Neutrophils Percent 11 % (0-6); Hypochromasia 1+ (NORMAL); Lymphocytes Absolute Manual 1.47 K/mm3 (1.1-4.5); Monocytes Absolute Manual 2.58 K/mm3 (0.1-0.90); Monocytes Percent Manual 7 % (3-9); Neutrophils Absolute Manual 32.84 K/mm3 (1.3-6.7); Neutrophils Percent Manual 78 % (46-73); Platelet Estimate Increased (Adequate); Total Cells Counted 100
[2022-06-06 18:10] LABS: Anisocytosis 2+ (NORMAL)
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
--- NOTE | 2022-06-06 23:28 | PC.NURSE ---
While doing Mr. Kline's admission he was continually falling asleep. When I began asking him about his home medications, one by one, he stated to me that he doesn't take any of his regular medications at home, and he cannot remember when he did last. I was trying to update them by going by the pharmacy list.
[2022-06-07] VITALS (9 sets, daily range): BP systolic 105–114; BP diastolic 43–61; PULSE 80–102; RESP 12–18; TEMP 36.9–37.1; O2SAT 95–98; BMI 26.6
[2022-06-07] MEDS: PIPERACILLIN/TAZOBACTAM SOD 4.5 GM in SODIUM CHLORIDE 0.9% IV 100 ML 200 ML IVPB ×4 (00:30→17:47)
[2022-06-07 06:27] LABS: Hematocrit 35.1 % (42.0-52.0); Hemoglobin 9.9 g/dL (14.0-18.0); Mean Corpuscular HGB Conc 28.2 g/dl (32-36); Mean Corpuscular Volume 67.2 fl (80-100); Mean Platelet Volume 8.5 fl (7.4-10.4); Platelet Count Result 568 k/mm3 (150-375); Red Blood Count 5.22 M/mm3 (4.6-6.20); White Blood Count 28.6 K/mm3 (4.5-10.0)
[2022-06-07] MEDS: ACETAMINOPHEN 500 MG TABLET PO (07:06)
[2022-06-07 07:11] LABS: Alanine Aminotransferase 12 U/L (6-50); Albumin Level 3.2 g/dL (3.5-5.1); Alkaline Phosphatase 177 U/L (38-126); Anion Gap 9 mmol/L (8-16); Aspartate Amino Transferase 17 U/L (17-59); Bilirubin,Total 0.4 mg/dL (0.2-1.3); Blood Urea Nitrogen 13 mg/dL (9-20); Calcium 8.5 mg/dL (8.4-10.2); Carbon Dioxide 27 mmol/L (22-30); Chloride 96 mmol/L (98-107); Estimated CRCL calculation 162 ml/min; Estimated Glomerular Filt Rate > 60; Glucose 103 mg/dL (65-110); Lactate Dehydrogenase 109 U/L (120-246); Magnesium 1.6 mg/dL (1.6-2.3); Potassium 3.8 mmol/L (3.4-5.0); Sodium 132 mmol/L (137-145)
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
[2022-06-07 07:40] LABS: Band Neutrophils Percent 3 % (0-6); Eosinophils Absolute Manual 1.43 K/mm3 (0.02-0.5); Eosinophils Percent Manual 5 % (0-4); Lymphocytes Absolute Manual 3.71 K/mm3 (1.1-4.5); Monocytes Absolute Manual 1.71 K/mm3 (0.1-0.90); Monocytes Percent Manual 6 % (3-9); Neutrophils Absolute Manual 21.73 K/mm3 (1.3-6.7); Neutrophils Percent Manual 73 % (46-73); Platelet Estimate Increased (Adequate); Schistocytes None Seen (NORMAL); Total Cells Counted 100
[2022-06-07 07:41] LABS: Anisocytosis 1+ (NORMAL); Atypical Lymphocytes Present; Hypochromasia 1+ (NORMAL)
[2022-06-07] MEDS: MORPHINE SULFATE (*CRX) 2 MG/ML INJ IV PUSH ×4 (07:42→22:14)
[2022-06-07 07:46] LABS: SARS-CoV-2 RNA PCR Negative
[2022-06-07 07:48] LABS: Glucose Point of Care 129 mg/dl (65-105)
[2022-06-07 08:09] LABS: CRP 29.9 mg/dL (<1.0)
[2022-06-07] MEDS: GABAPENTIN 300 MG CAPSULE PO ×3 (09:31→18:11)
--- NOTE | 2022-06-07 11:48 | IDPHARM ---
Subjective Pharmacy was consulted by Brenda Vences regarding infectious diseases for Nish Kline. Nish Kline is a 42 year old M with concerns regarding this patient's infection potenitally regarding his wounds or toes. Background The patient is currently receiving Vancomycin and Piperacillin/Tazobactam. The patient's PMH includes parapalegia and having these toes be blackened a few months ago and is being see at an outside hospital per provider per patient. Patient is a recent admit. Assessment/Recommendation/Discussion Discussed with provider that broad-spectrum antibiotics, given patient's history, is likely appropriate and opportunities for source control and or sampling may be beneficial in directing further the course of therapy. Thank you for the interesting consult. Flakito Davis, PharmD Infectious Disease/Antimicrobial Stewardship Pharmacist 06/07/22; 2722
[2022-06-07] MEDS: COLLAGENASE OINT 30 GM TUBE 1 APPLIC TOPICAL (12:20)
[2022-06-07] MEDS: SILVERGEL (ELTA) 45 ML 1 APPLIC TOPICAL (12:20)
--- NOTE | 2022-06-07 12:45 | PC.NURSE ---
Idalia Fernando N.P. placed 16 Azerbaijani tidwell cathether
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
[2022-06-08] VITALS (7 sets, daily range): BP systolic 104–116; BP diastolic 44–63; PULSE 89–98; RESP 18–20; TEMP 35.8–36.4; O2SAT 93–98
[2022-06-08] MEDS: PIPERACILLIN/TAZOBACTAM SOD 4.5 GM in SODIUM CHLORIDE 0.9% IV 100 ML IVPB ×2 (00:10→13:26)
[2022-06-08] MEDS: MORPHINE SULFATE (*CRX) 2 MG/ML INJ IV PUSH ×5 (02:27→20:00)
[2022-06-08] MEDS: PIPERACILLIN/TAZOBACTAM SOD 4.5 GM in SODIUM CHLORIDE 0.9% IV 100 ML 200 ML IVPB (05:28)
--- NOTE | 2022-06-08 07:17 | WPDUROPN2 ---
Progress Note: A&P Assessment and Plan (1) Cystitis: Code(s): N30.90 - Cystitis, unspecified without hematuria Status: Acute (2) Pyelitis: Code(s): N12 - Tubulo-interstitial nephritis, not specified as acute or chronic Status: Acute Assessment and Plan: Bilat. perc. nephrostomy tubes and urethral cahteter draining well and urine has cleared nicely over 24-hours / no longer purulent. Scrotal u/s unremarkable -> bilat. hydroceles and scrotal edema. Continue urinary drainage as is and f/u with urologist at [place] if he wants to replace s/p catheter. Subjective Subjective Date/Time Seen: 06/08/22 07:17 No complaints Review of Systems Respiratory: Respiratory: Denies pain on inspiration and Denies dyspnea Genitourinary: Genitourinary: Reports no additional male genitourinary complaints Exam Resp: Effort & Inspection: normal respiratory effort : Penis: Yes normal penis Scrotum: edematous Urinary Catheter: Urinary Catheter: patent and draining and urine clear Objective Data Vital Signs Vital Signs: Vital Signs - 24 hr 06/07/22 08:50 06/07/22 08:00 06/07/22 12:00 Temperature Pulse Rate 98 80 Respiratory Rate Blood Pressure Pulse Oximetry Oxygen Delivery Room Air 06/07/22 14:00 06/07/22 16:00 06/07/22 21:16 Temperature 98.4 F 98.8 F Pulse Rate 102 H 101 H 102 H Respiratory Rate 18 18 Blood Pressure 114/44 L 108/43 L Pulse Oximetry 98 95 Oxygen Delivery 06/07/22 20:00 06/07/22 20:00 06/08/22 00:00 Temperature Pulse Rate 101 H 102 H 98 Respiratory Rate 18 Blood Pressure Pulse Oximetry 95 Oxygen Delivery Room Air 06/08/22 04:00 06/08/22 06:00 Temperature 97.5 F L Pulse Rate 94 91 Respiratory Rate 18 Blood Pressure 104/58 L Pulse Oximetry 93 Oxygen Delivery Intake/Output Intake/Output: Intake & Output 06/05/22 06/06/22 06/07/22 06/08/22 23:59 23:59 23:59 23:59 Intake Total 300 2340 1040 Output Total 655 1550 Balance 300 1685 -510 Meds/Results Medications: Active Medications Generic Name Dose Route Start Last Admin Trade Name Freq PRN Reason Stop Dose Admin Acetaminophen 500 mg 06/07/22 00:08 06/07/22 07:06 Acetaminophen 500 Mg Tablet PO 500 mg Q6-8H PRN Administration Pain (Scale Score 4-6) Collagenase 1 applic 06/07/22 12:00 06/07/22 12:20 Collagenase Oint 30 Gm Tube TOPICAL 1 applic QAM CLINT Administration Gabapentin 300 mg 06/07/22 09:00 06/07/22 18:11 Gabapentin 300 Mg Capsule PO 300 mg TID CLINT Administration Hydroxyzine HCl 25 mg 06/06/22 22:38 Hydroxyzine Hcl 25 Mg Tablet PO Q6H PRN Itching Piperacillin Sod/Tazobactam 100 mls @ 200 mls/hr 06/07/22 00:00 06/08/22 05:58 Sod 4.5 gm/ Sodium Chloride IVPB Infused Q6H CLINT Infusion Vancomycin HCl 1,500 mg in 500 mls @ 333.333 mls/hr 06/07/22 10:00 06/07/22 22:36 Vancomycin 1,500 Mg/D5w 500 Ml IVPB Infused Q12H CLINT Infusion Miconazole Nitrate 1 applic 06/07/22 12:00 06/07/22 21:07 Miconazole 2% Antifungal Ointment 56 Gm TOPICAL 1 applic Q12HR CLINT Administration Morphine Sulfate 2 mg 06/07/22 07:25 06/08/22 06:54 Morphine Sulfate (*Crx) 2 Mg/Ml Inj IV PUSH 2 mg Q4H PRN Administration Pain Rated 7-10 Silver Nitrate 1 applic 06/07/22 12:00 06/07/22 12:20 Silvergel (Elta) 45 Ml TOPICAL 1 applic DAILY CLINT Administration Radiology Results: ITS Impressions Chest X-Ray 06/06/22 16:42 IMPRESSION: No acute cardiopulmonary process. Foot X-Ray 06/07/22 08:04 IMPRESSION: 1. No evidence of osteomyelitis. Osteopenia decreases sensitivity. Abdomen/Pelvis CT 06/07/22 09:13 IMPRESSION: 1. Dependent airspace and groundglass opacities in the lower lobes, consistent with pneumonia. 2. Cystitis and bilateral pyelitis. 3. Chronic decubitus ulcers with chronic osteomyelitis of the ischial tuberosities, sacrum, an
--- NOTE | 2022-06-08 08:12 | PM.IMPN ---
Progress Note: A&P Assessment and Plan (1) Overdose: Code(s): T50.901A - Poisoning by unspecified drugs, medicaments and biological substances, accidental (unintentional), initial encounter Status: Acute Assessment and Plan: UDS positive for methamphetamines, benzodiazepines and cannabinoids. Currently back to his baseline. Will monitor. (2) Leukocytosis: Code(s): D72.829 - Elevated white blood cell count, unspecified Status: Acute Assessment and Plan: CT abdomen pelvis with chronic decubitus ulcers with chronic osteomyelitis as well as ground glass opacities concerning for pneumonia. Suprapubic catheter replaced with temporary ureteral catheter and urine has cleared. UCX with mixed chad. BCX with no growth. Toe wounds open to air with no bleeding or drainage. WCX growing gram positive cocci. -Discontinue zosyn -Will continue vancomycin and follow wound cultures to narrow antibiotics for discharge (3) Necrotic toes: Code(s): I96 - Gangrene, not elsewhere classified Status: Acute Assessment and Plan: Wounds do not appear to be infected. Appreciate General Surgery recommendations. Will continue wound care and monitor. Patient will need to follow up with [facility] wound clinic after discharge. (4) Anemia: Code(s): D64.9 - Anemia, unspecified Status: Acute Assessment and Plan: Iron deficiency anemia. -Ferrous sulfate BID (5) Decubitus ulcer: Code(s): L89.90 - Pressure ulcer of unspecified site, unspecified stage Status: Acute Assessment and Plan: CT abdomen pelvis as noted above. Will continue wound care. (6) Lower obstructive uropathy: Code(s): N13.9 - Obstructive and reflux uropathy, unspecified Status: Acute Assessment and Plan: Bilateral nephrostomy tubes. Suprapubic catheter replaced by temporary uretheral catheter. Patient will need to follow up with his Urologist at [facility] for permanent replacement. -Appreciate Urology recommendations (7) Urinary retention: Code(s): R33.9 - Retention of urine, unspecified Status: Chronic Assessment and Plan: See above. (8) Paraplegia: Code(s): G82.20 - Paraplegia, unspecified Status: Chronic Assessment and Plan: Has chronic pain related to muscle spasms from paraplegia 10/18 W December 2019. -continue with gabapentin -continue with muscle relaxers (9) Anxiety: Code(s): F41.9 - Anxiety disorder, unspecified Status: Chronic Assessment and Plan: -Continue with hydroxyzine (10) Depression: Code(s): F32.9 - Major depressive disorder, single episode, unspecified Status: Chronic Assessment and Plan: Overdose was not intentional. No SI. Patient endorses running out of pain medication and taking heroine for pain relief. (11) Urinary tract infection: Qualifiers: Hematuria presence: with hematuria Urinary tract infection type: acute cystitis Qualified Code(s): N30.01 - Acute cystitis with hematuria Code(s): N39.0 - Urinary tract infection, site not specified Status: Acute Assessment and Plan: Urine culture with mixed chad. Subjective Date/time seen: 06/08/22 08:12 Patient says he still has pain. He says he feels about the same. Review of Systems Musculoskeletal: Musculoskeletal: Reports myalgias Exam Narrative: GENERAL: NAD, cooperative HEENT: Normocephalic, atraumatic, anicteric, nares clear, has round, mass on left above eye NECK:Supple CV: Normal S1, S2, RRR, No MRG RESP: CTAB, Normal work of breathing. EXTREMITIES: Toes on both fee black with thick eschar looking wounds. No visible drainage. SKIN: warm, dry and intact. NEURO:Paraplegia CN 2-12 grossly intact. Objective Data Vital Signs Vital Signs: Vital Signs - 24 hr 06/07/22 08:50 06/07/22 12:00 06/07/
[2022-06-08 08:53] LABS: Basophils Absolute Auto 0.1 K/mm3 (0.0-0.1); Basophils Percent Auto 0.3 % (0.2-1.2); Eosinophils Absolute Auto 0.5 K/mm3 (0-0.3); Eosinophils Percent Auto 2.3 % (0-4.4); Hematocrit 33.7 % (42.0-52.0); Hemoglobin 9.3 g/dL (14.0-18.0); Immature Granulocyte Absolute 0.29 K/mm3 (0.00-0.031); Immature Granulocyte Percent A 1.3 % (0-0.5); Immature Platelet Fraction Pct 1.1 % (0.9-11.2); Lymphocytes Absolute Auto 2.22 K/mm3 (0.9-3.2); Lymphocytes Percent Auto 10.3 % (18.3-44.2); Mean Corpuscular HGB Conc 27.6 g/dl (32-36); Mean Corpuscular Volume 68.8 fl (80-100); Mean Platelet Volume 8.4 fl (7.4-10.4); Monocytes Absolute Auto 1.5 K/mm3 (0.1-0.6); Monocytes Percent Auto 7.1 % (2.6-8.5); Neutrophils Absolute Auto 16.9 K/mm3 (1.3-6.7); Neutrophils Percent Auto 78.7 % (45.5-73.1); Platelet Count Result 596 k/mm3 (150-375); Reticulocyte Hemoglobin Conten 15.4 pg (28.2-35.7); Reticulocyte Percent 0.97 % (0.7-4.3); Reticulocytes Absolute 0.05 B/L (32.2-175.7); White Blood Count 21.5 K/mm3 (4.5-10.0)
[2022-06-08 09:10] LABS: Anion Gap 8 mmol/L (8-16); Blood Urea Nitrogen 10 mg/dL (9-20); Calcium 8.1 mg/dL (8.4-10.2); Carbon Dioxide 33 mmol/L (22-30); Chloride 96 mmol/L (98-107); Estimated CRCL calculation 197 ml/min; Estimated Glomerular Filt Rate > 60; Glucose 134 mg/dL (65-110); Potassium 3.9 mmol/L (3.4-5.0); Sodium 137 mmol/L (137-145)
[2022-06-08 09:16] LABS: Platelet Estimate Adequate (Adequate)
[2022-06-08 09:17] LABS: Anisocytosis 1+ (NORMAL); Hypochromasia 1+ (NORMAL); Ovalocytes 1+ (NORMAL)
[2022-06-08 09:21] LABS: Schistocytes None Seen (NORMAL)
[2022-06-08 09:37] LABS: Thyroid Stimulating Hormone 0.662 uIU/mL (0.465-4.680)
[2022-06-08] MEDS: GABAPENTIN 300 MG CAPSULE PO (09:41)
[2022-06-08] MEDS: SILVERGEL (ELTA) 45 ML 1 APPLIC TOPICAL (09:43)
[2022-06-08] MEDS: COLLAGENASE OINT 30 GM TUBE 1 APPLIC TOPICAL (09:43)
[2022-06-08 09:46] LABS: CRP 29.4 mg/dL (<1.0)
[2022-06-08 09:54] LABS: Vancomycin Trough 6.9 ug/mL (10.0-20.0)
--- NOTE | 2022-06-08 12:10 | PM.PNGS ---
Progress Note: A&P Assessment and Plan (1) Necrotic toes: Code(s): I96 - Gangrene, not elsewhere classified Status: Acute Assessment and Plan: Dry eschar or gangrene, being treated with Betadine and supportive boot. Stable. (2) Fungal dermatitis: Code(s): B36.9 - Superficial mycosis, unspecified Status: Acute Assessment and Plan: Being treated with triple antifungal cream as ordered (3) Decubitus ulcer: Code(s): L89.90 - Pressure ulcer of unspecified site, unspecified stage Status: Acute Assessment and Plan: Clean and granulating. All chronic wounds being treated as ordered. Plan Continue wound care. Patient can be discharged from my perspective. Will be eating to follow-up at [facility] for urologic problems. Wounds are unlikely to heal for reasons mentioned on consultation. Subjective Subjective Date/Time Seen: 06/08/22 12:10 Patient reports: still having pain (Wants more pain medication for diffuse pain) Review of Systems Review of Systems: All systems reviewed & are unremarkable except as noted in HPI and below (HPI and those items noted below) Constitutional: Constitutional: Denies chills and Denies fever(s) Cardiovascular: Cardiovascular: Denies chest pain, Denies diaphoresis, Denies dyspnea and Denies paroxysmal nocturnal dyspnea Respiratory: Respiratory: Denies chest congestion, Denies cough and Denies dyspnea Exam Const: General: comfortable, no acute distress, alert and awake GI: Inspection: other (Who lower abdominal wounds clean being dressed with silver gel) Back/Spine/Pelvis: Sacrum: other (Wound clean, granulating, stable) Skin: Wounds: wounds noted (Stable and being dressed as ordered-santyl and silver gel as appropriate) Extrem: Right lower extremity: foot (Toes with dry eschar being treated with Betadine and waffle boot as ordered) Left lower extremity: foot (Toes with dry eschar being treated with Betadine and waffle boot) Objective Data Vital Signs Vital Signs: Vital Signs - 24 hr 06/07/22 14:00 06/07/22 16:00 06/07/22 21:16 Temperature 36.9 C 37.1 C Pulse Rate 102 H 101 H 102 H Respiratory Rate 18 18 Blood Pressure 114/44 L 108/43 L Pulse Oximetry 98 95 Oxygen Delivery 06/07/22 20:00 06/07/22 20:00 06/08/22 00:00 Temperature Pulse Rate 101 H 102 H 98 Respiratory Rate 18 Blood Pressure Pulse Oximetry 95 Oxygen Delivery Room Air 06/08/22 04:00 06/08/22 06:00 Temperature 36.4 C L Pulse Rate 94 91 Respiratory Rate 18 Blood Pressure 104/58 L Pulse Oximetry 93 Oxygen Delivery Intake/Output Intake/Output: Intake & Output 06/05/22 06/06/22 06/07/22 06/08/22 23:59 23:59 23:59 23:59 Intake Total 300 2340 1040 Output Total 655 2475 Balance 300 0189 -2553 Meds/Results Medications: Active Medications Generic Name Dose Route Start Last Admin Trade Name Freq PRN Reason Stop Dose Admin Acetaminophen 500 mg 06/07/22 00:08 06/07/22 07:06 Acetaminophen 500 Mg Tablet PO 500 mg Q6-8H PRN Administration Pain (Scale Score 4-6) Collagenase 1 applic 06/07/22 12:00 06/08/22 09:43 Collagenase Oint 30 Gm Tube TOPICAL 1 applic QAM CLINT Administration Gabapentin 300 mg 06/07/22 09:00 06/08/22 09:41 Gabapentin 300 Mg Capsule PO 300 mg TID CLINT Administration Hydroxyzine HCl 25 mg 06/06/22 22:38 Hydroxyzine Hcl 25 Mg Tablet PO Q6H PRN Itching Piperacillin Sod/Tazobactam 100 mls @ 200 mls/hr 06/07/22 00:00 06/08/22 05:58 Sod 4.5 gm/ Sodium Chloride IVPB Infused Q6H CLINT Infusion Vancomycin HCl 2,000 mg in 500 mls @ 250 mls/hr 06/08/22 22:00 Vancomycin 2,000 Mg/D5w 500 Ml IVPB Q12H CLINT Miconazole Nitrate 1 applic 06/07/22 12:00 06/08/22 09:43 Miconazole 2% Antifungal Ointment 56 Gm TOPICAL 1 applic Q12HR CLINT Administration Morphine Sulfate 2 mg 06/07/22 07:25 06/08/22 11:21 Morphine Sulfate
[2022-06-08 12:24] LABS: Iron 14 ug/dL (49-181)
[2022-06-08 12:35] LABS: Percent Iron Saturation 6 % (20-50)
[2022-06-08] MEDS: HYDROcodone/acetaminophen (*CRX) 5-325 MG TABLET 1 TAB PO (23:26)
--- NOTE | 2022-06-08 23:57 | PC.NURSE ---
Addendum entered by AMA Baltazar 06/08/22 23:59: Patient educated on importance of anticoagulation medication and Iron supplements. Pt still refuses to take medication. Original Note: 06/08/22 1700 Ferrous Sulfate and Lovenox injection were overdue due to delay in pharmacy sending medication. When attempting to pass medications patient states I do not want to take any pills unless they are my pain medicine. patient educated on importance onm
[2022-06-09] MEDS: guaiFENesin/DEXTROMETHORPHAN 10 ML UDC PO (00:03)
[2022-06-09] MEDS: MORPHINE SULFATE (*CRX) 2 MG/ML INJ IV PUSH ×5 (00:03→17:05)
[2022-06-09 06:00] VITALS: BP 104/62; PULSE 86; RESP 18; TEMP 36.2; O2SAT 94
[2022-06-09 06:48] LABS: Basophils Absolute Auto 0.1 K/mm3 (0.0-0.1); Basophils Percent Auto 0.5 % (0.2-1.2); Eosinophils Absolute Auto 0.5 K/mm3 (0-0.3); Eosinophils Percent Auto 3.2 % (0-4.4); Hemoglobin 9.9 g/dL (14.0-18.0); Immature Granulocyte Percent A 1.3 % (0-0.5); Lymphocytes Absolute Auto 2.02 K/mm3 (0.9-3.2); Lymphocytes Percent Auto 13.6 % (18.3-44.2); Mean Corpuscular HGB Conc 26.8 g/dl (32-36); Mean Corpuscular Hemoglobin 18.5 pg (26-34); Mean Corpuscular Volume 69.2 fl (80-100); Mean Platelet Volume 8.2 fl (7.4-10.4); Monocytes Percent Auto 6.9 % (2.6-8.5); Neutrophils Absolute Auto 11.1 K/mm3 (1.3-6.7); Neutrophils Percent Auto 74.5 % (45.5-73.1); Platelet Count Result 542 k/mm3 (150-375); Red Blood Count 5.35 M/mm3 (4.6-6.20); Red Cell Distribution Width 19.2 % (11.5-14.5); White Blood Count 14.9 K/mm3 (4.5-10.0)
[2022-06-09 07:01] LABS: Anion Gap 9 mmol/L (8-16); Blood Urea Nitrogen 9 mg/dL (9-20); Calcium 8.5 mg/dL (8.4-10.2); Carbon Dioxide 31 mmol/L (22-30); Chloride 99 mmol/L (98-107); Estimated CRCL calculation 197 ml/min; Estimated Glomerular Filt Rate > 60; Glucose 127 mg/dL (65-110); Sodium 139 mmol/L (137-145)
[2022-06-09 07:18] LABS: CRP 19.5 mg/dL (<1.0)
--- NOTE | 2022-06-09 08:07 | PM.IMPN ---
Progress Note: A&P Assessment and Plan (1) Overdose: Code(s): T50.901A - Poisoning by unspecified drugs, medicaments and biological substances, accidental (unintentional), initial encounter Status: Acute Assessment and Plan: UDS positive for methamphetamines, benzodiazepines and cannabinoids. Currently back to his baseline. Will monitor. (2) Leukocytosis: Code(s): D72.829 - Elevated white blood cell count, unspecified Status: Acute Assessment and Plan: CT abdomen pelvis with chronic decubitus ulcers with chronic osteomyelitis as well as ground glass opacities concerning for pneumonia. Suprapubic catheter replaced with temporary ureteral catheter and urine has cleared. UCX with mixed chad. BCX with no growth. Toe wounds open to air with no bleeding or drainage. WCX growing gram positive cocci. Called and spoke with Gena Casiano, who said the sensitivities for the wound culture would be finished tomorrow. -Continue vancomycin (3) Necrotic toes: Code(s): I96 - Gangrene, not elsewhere classified Status: Acute Assessment and Plan: Wounds do not appear to be infected. Appreciate General Surgery recommendations. Will continue wound care and monitor. Patient will need to follow up with [facility] wound clinic after discharge. (4) Anemia: Code(s): D64.9 - Anemia, unspecified Status: Acute Assessment and Plan: -Ferrous sulfate BID (5) Decubitus ulcer: Code(s): L89.90 - Pressure ulcer of unspecified site, unspecified stage Status: Acute Assessment and Plan: CT abdomen pelvis as noted above. Will continue wound care. (6) Lower obstructive uropathy: Code(s): N13.9 - Obstructive and reflux uropathy, unspecified Status: Acute Assessment and Plan: Bilateral nephrostomy tubes. Suprapubic catheter replaced by temporary uretheral catheter. Patient will need to follow up with his Urologist at [facility] for permanent replacement. -Appreciate Urology recommendations (7) Urinary retention: Code(s): R33.9 - Retention of urine, unspecified Status: Chronic Assessment and Plan: See above. (8) Paraplegia: Code(s): G82.20 - Paraplegia, unspecified Status: Chronic Assessment and Plan: Has chronic pain related to muscle spasms from paraplegia 10/18 W December 2019. -continue with gabapentin -continue with muscle relaxers (9) Anxiety: Code(s): F41.9 - Anxiety disorder, unspecified Status: Chronic Assessment and Plan: -Continue with hydroxyzine (10) Depression: Code(s): F32.9 - Major depressive disorder, single episode, unspecified Status: Chronic Assessment and Plan: Overdose was not intentional. No SI. Patient endorses running out of pain medication and taking heroine for pain relief. (11) Urinary tract infection: Qualifiers: Hematuria presence: with hematuria Urinary tract infection type: acute cystitis Qualified Code(s): N30.01 - Acute cystitis with hematuria Code(s): N39.0 - Urinary tract infection, site not specified Status: Acute Assessment and Plan: Urine culture with mixed chad. Subjective Date/time seen: 06/09/22 08:07 Notified by nursing patient is requesting transfer to [facility]. Patient expresses concerns regarding his suprapubic catheter and the leakage of urine from his penis. Patient reports he is having significant leakage of urine and says he is lying soaked in urine every few minutes. He says as soon as the urine is cleaned, it leaks again causing him to be resoaked. Review of Systems Genitourinary: Genitourinary: Reports as per HPI Exam Narrative: GENERAL: NAD, cooperative HEENT: Normocephalic, atraumatic, anicteric, nares clear, has round, mass on left above eye NECK:Supple CV: Normal S1, S2, RRR, No MRG
[2022-06-09 08:42] LABS: Hypochromasia 1+ (NORMAL); Platelet Estimate Increased (Adequate)
[2022-06-09 08:44] LABS: Schistocytes None Seen (NORMAL)
[2022-06-09] MEDS: FERROUS SULFATE 324 MG TABLET PO ×2 (08:49→17:10)
[2022-06-09] MEDS: ENOXAPARIN 40 MG/0.4 ML SYRINGE SUB-Q (08:49)
[2022-06-09] MEDS: COLLAGENASE OINT 30 GM TUBE 1 APPLIC TOPICAL (08:50)
[2022-06-09] MEDS: GABAPENTIN 300 MG CAPSULE PO ×2 (08:50→17:10)
[2022-06-09] MEDS: SILVERGEL (ELTA) 45 ML 1 APPLIC TOPICAL (08:50)
[2022-06-09] MEDS: guaiFENesin 12 HR 600 MG TABCR PO ×2 (10:07→21:02)
[2022-06-09] MEDS: HYDROcodone/acetaminophen (*CRX) 5-325 MG TABLET 1 TAB PO (11:11)
[2022-06-09 14:00] VITALS: BP 110/62; PULSE 85; RESP 20; TEMP 36.8; O2SAT 96
[2022-06-09] MEDS: NICOTINE (*PBKC) 21 MG PATCH 1 PATCH TRANSDERM (17:05)
[2022-06-09 22:00] VITALS: BP 125/70; PULSE 92; RESP 14; TEMP 37.1; O2SAT 97
[2022-06-10] MEDS: MORPHINE SULFATE (*CRX) 2 MG/ML INJ IV PUSH ×5 (01:02→20:18)
[2022-06-10] MEDS: HYDROcodone/acetaminophen (*CRX) 5-325 MG TABLET 1 TAB PO ×3 (05:23→14:28)
[2022-06-10 05:53] VITALS: BP 116/56; PULSE 81; RESP 14; TEMP 37; O2SAT 94
--- NOTE | 2022-06-10 07:53 | PM.IMPN ---
Progress Note: A&P Assessment and Plan (1) Overdose: Code(s): T50.901A - Poisoning by unspecified drugs, medicaments and biological substances, accidental (unintentional), initial encounter Status: Acute Assessment and Plan: UDS positive for methamphetamines, benzodiazepines and cannabinoids. Currently back to his baseline. Will monitor. (2) Leukocytosis: Code(s): D72.829 - Elevated white blood cell count, unspecified Status: Acute Assessment and Plan: CT abdomen pelvis with chronic decubitus ulcers with chronic osteomyelitis as well as ground glass opacities concerning for pneumonia. Suprapubic catheter replaced with temporary tidwell catheter and urine has cleared. UCX with mixed chad. BCX with no growth. Toe wounds open to air with no bleeding or drainage. WCX growing gram positive cocci. Called and spoke with Gena Casiano, who said the sensitivities for the wound culture would be finished tomorrow. Clinically improved with leukocytosis downtrending. -Continue vancomycin (3) Necrotic toes: Code(s): I96 - Gangrene, not elsewhere classified Status: Acute Assessment and Plan: Wounds do not appear to be infected. Appreciate General Surgery recommendations. Will continue wound care and monitor. Patient will need to follow up with [facility] wound clinic after discharge. (4) Anemia: Code(s): D64.9 - Anemia, unspecified Status: Acute Assessment and Plan: -Ferrous sulfate BID (5) Decubitus ulcer: Code(s): L89.90 - Pressure ulcer of unspecified site, unspecified stage Status: Acute Assessment and Plan: CT abdomen pelvis as noted above. Will continue wound care. (6) Lower obstructive uropathy: Code(s): N13.9 - Obstructive and reflux uropathy, unspecified Status: Acute Assessment and Plan: Bilateral nephrostomy tubes. Suprapubic catheter replaced by temporary tidwell catheter. Patient will need to follow up with his Urologist at [facility] for permanent replacement. Patient reporting increasing amount of urine leakage that urology suspects is due to spasm around the catheter. Discussed patient with Dr. Cai, urologist, who will have their midlevel see the patient on Saturday. -Appreciate Urology recommendations (7) Urinary retention: Code(s): R33.9 - Retention of urine, unspecified Status: Chronic Assessment and Plan: See above. (8) Paraplegia: Code(s): G82.20 - Paraplegia, unspecified Status: Chronic Assessment and Plan: Has chronic pain related to muscle spasms from paraplegia 10/18 W December 2019. -continue with gabapentin -continue with muscle relaxers (9) Anxiety: Code(s): F41.9 - Anxiety disorder, unspecified Status: Chronic Assessment and Plan: -Continue with hydroxyzine (10) Depression: Code(s): F32.9 - Major depressive disorder, single episode, unspecified Status: Chronic Assessment and Plan: Overdose was not intentional. No SI. Patient endorses running out of pain medication and taking heroine for pain relief. (11) Urinary tract infection: Qualifiers: Hematuria presence: with hematuria Urinary tract infection type: acute cystitis Qualified Code(s): N30.01 - Acute cystitis with hematuria Code(s): N39.0 - Urinary tract infection, site not specified Status: Acute Assessment and Plan: Urine culture with mixed chad. Subjective Date/time seen: 06/10/22 07:53 Patient is reporting increased leakage from a hole in his scrotum causing him to be soaked in urine constantly. Patient says he would like to be transferred to [facility]. He says the wound on his loer abdomen is painful. Exam Narrative: GENERAL: NAD, cooperative HEENT: Normocephalic, atraumatic, anicteric, nares clear, has round, mass on left above
[2022-06-10 08:00] VITALS: PULSE 81; RESP 14; O2SAT 94
[2022-06-10] MEDS: NICOTINE (*PBKC) 21 MG PATCH 1 PATCH TRANSDERM (08:22)
[2022-06-10] MEDS: GABAPENTIN 300 MG CAPSULE PO ×2 (08:22→16:03)
[2022-06-10] MEDS: guaiFENesin 12 HR 600 MG TABCR PO (08:22)
[2022-06-10 08:42] LABS: Basophils Absolute Auto 0.1 K/mm3 (0.0-0.1); Basophils Percent Auto 0.7 % (0.2-1.2); Eosinophils Absolute Auto 0.5 K/mm3 (0-0.3); Eosinophils Percent Auto 4.2 % (0-4.4); Hematocrit 35.7 % (42.0-52.0); Hemoglobin 9.8 g/dL (14.0-18.0); Immature Granulocyte Absolute 0.25 K/mm3 (0.00-0.031); Immature Granulocyte Percent A 1.9 % (0-0.5); Lymphocytes Absolute Auto 2.27 K/mm3 (0.9-3.2); Lymphocytes Percent Auto 17.7 % (18.3-44.2); Mean Corpuscular HGB Conc 27.5 g/dl (32-36); Mean Corpuscular Hemoglobin 18.7 pg (26-34); Mean Platelet Volume 8.2 fl (7.4-10.4); Monocytes Absolute Auto 0.7 K/mm3 (0.1-0.6); Monocytes Percent Auto 5.3 % (2.6-8.5); Neutrophils Percent Auto 70.2 % (45.5-73.1); Platelet Count Result 551 k/mm3 (150-375); Red Blood Count 5.25 M/mm3 (4.6-6.20); Red Cell Distribution Width 19.3 % (11.5-14.5); White Blood Count 12.8 K/mm3 (4.5-10.0)
[2022-06-10 09:05] LABS: Anisocytosis 1+ (NORMAL); Hypochromasia 1+ (NORMAL); Ovalocytes 1+ (NORMAL); Platelet Estimate Increased (Adequate); Target Cells 1+ (NORMAL)
[2022-06-10 09:06] LABS: Schistocytes None Seen (NORMAL)
[2022-06-10 09:15] LABS: Anion Gap 11 mmol/L (8-16); Blood Urea Nitrogen 9 mg/dL (9-20); CRP 13.4 mg/dL (<1.0); Calcium 8.4 mg/dL (8.4-10.2); Carbon Dioxide 28 mmol/L (22-30); Chloride 100 mmol/L (98-107); Estimated CRCL calculation 197 ml/min; Estimated Glomerular Filt Rate > 60; Glucose 123 mg/dL (65-110); Potassium 3.9 mmol/L (3.4-5.0); Sodium 139 mmol/L (137-145)
[2022-06-10 09:19] LABS: Vancomycin Trough 11.4 ug/mL (10.0-20.0)
--- NOTE | 2022-06-10 13:10 | WPDUROPN2 ---
Progress Note: A&P Assessment and Plan (1) Cystitis: Code(s): N30.90 - Cystitis, unspecified without hematuria Status: Acute (2) Open wound of scrotum: Code(s): S31.30XA - Unspecified open wound of scrotum and testes, initial encounter Status: Acute Assessment and Plan: fistula tract----may consider CT cystogram will need to see reconstructive team at [facility]--he is established. He did better with SP tube--- (3) Urinary retention: Code(s): R33.9 - Retention of urine, unspecified Status: Chronic Assessment and Plan: tidwell and bilateral percs Subjective Subjective Date/Time Seen: 06/10/22 13:10 Urine leaking out scrotum despite tidwell and bilateral percs complicated urology picture---decompress maximally WBC improving Review of Systems Genitourinary: Genitourinary: Reports as per HPI Exam GI: Inspection: normal to inspection, non-distended and incision (intact) : Scrotum: not edematous, no scrotal swelling and other (looks to have fistula tract at base of penis and scrotal junction) Other: urethral catheter and bilateral percs in place Urinary Catheter: Urinary Catheter: patent and draining Objective Data Vital Signs Vital Signs: Vital Signs - 24 hr 06/09/22 14:00 06/09/22 22:00 06/10/22 05:53 Temperature 36.8 C 37.1 C 37.0 C Pulse Rate 85 92 81 Respiratory Rate 20 14 14 Blood Pressure 110/62 125/70 116/56 L Pulse Oximetry 96 97 94 Intake/Output Intake/Output: Intake & Output 06/07/22 06/08/22 06/09/22 06/10/22 23:59 23:59 23:59 23:59 Intake Total 2340 3060 6400 2400 Output Total 655 3550 3300 3290 Balance 1685 -490 3100 -890 Meds/Results Medications: Active Medications Generic Name Dose Route Start Last Admin Trade Name Freq PRN Reason Stop Dose Admin Acetaminophen 500 mg 06/07/22 00:08 06/07/22 07:06 Acetaminophen 500 Mg Tablet PO 500 mg Q6-8H PRN Administration Pain (Scale Score 4-6) Hydrocodone Bitart/Acetaminophen 1 tab 06/08/22 22:43 06/10/22 10:58 Hydrocodone/Acetaminophen (*Crx) 5-325 Mg Tablet PO 1 tab Q4H PRN Administration Pain 3-6 Collagenase 1 applic 06/07/22 12:00 06/09/22 08:50 Collagenase Oint 30 Gm Tube TOPICAL 1 applic QAM CLINT Administration Enoxaparin Sodium 40 mg 06/08/22 17:30 06/10/22 08:30 Enoxaparin 40 Mg/0.4 Ml Syringe SUB-Q Not Given DAILY [facility] Ferrous Sulfate 324 mg 06/08/22 17:00 06/10/22 08:22 Ferrous Sulfate 324 Mg Tablet PO 324 mg BIDWM CLINT Administration Gabapentin 300 mg 06/07/22 09:00 06/10/22 08:22 Gabapentin 300 Mg Capsule PO 300 mg TID CLINT Administration Guaifenesin 600 mg 06/09/22 09:00 06/10/22 08:22 Guaifenesin 12 Hr 600 Mg Tabcr PO 600 mg Q12HR CLINT Administration Guaifenesin/Dextromethorphan 10 ml 06/08/22 23:30 06/09/22 00:03 Guaifenesin/Dextromethorphan 10 Ml Udc PO 10 ml Q4H PRN Administration Cough Hydroxyzine HCl 25 mg 06/06/22 22:38 Hydroxyzine Hcl 25 Mg Tablet PO Q6H PRN Itching Vancomycin HCl 1,500 mg in 500 mls @ 333.333 mls/hr 06/10/22 10:00 06/10/22 10:53 Vancomycin 1,500 Mg/D5w 500 Ml IVPB 333.33 mls/hr Q8H CLINT Administration Miconazole Nitrate 1 applic 06/07/22 12:00 06/09/22 21:02 Miconazole 2% Antifungal Ointment 56 Gm TOPICAL 1 applic Q12HR CLINT Administration Morphine Sulfate 2 mg 06/07/22 07:25 06/10/22 08:17 Morphine Sulfate (*Crx) 2 Mg/Ml Inj IV PUSH 2 mg Q4H PRN Administration Pain Rated 7-10 Nicotine 1 patch 06/09/22 17:00 06/10/22 08:22 Nicotine (*Pbkc) 21 Mg Patch TRANSDERM 1 patch QAM CLINT Administration Silver Nitrate 1 applic 06/07/22 12:00 06/09/22 08:50 Silvergel (Elta) 45 Ml TOPICAL 1 applic DAILY CLINT Administration Radiology Results: ITS Impressions Chest X-Ray 06/06/22 16:42 IMPRESSION: No acute cardiopulmonary process. Foot X-Ray 06/07/22 08:0
--- NOTE | 2022-06-10 15:05 | PC.NURSE ---
Patient made aware of midline order. Patient complains of increased pain. This nurse made the hospitalist aware of increased pain needs. Per hospitalist will put in an order for [place]. Patient made aware and become aggressive and states I am not taking the [place] they do not help Patient started screaming and cursing at this nurse. This nurse notified provider of patient request for stronger pain medications aside from [place]. Hospitalist noted only an order for [place] would be given until the midline could be placed. Patient continued screaming noting he wants to be transferred to [place]. Provider made aware. This nurse confirmed eta of vascular access nurse and updated patient.Patient apologized for his behaviors and would wait for the vascular nurse to show. Floor RN made aware.
[2022-06-10] MEDS: SILVERGEL (ELTA) 45 ML 1 APPLIC TOPICAL (16:10)
[2022-06-10] MEDS: COLLAGENASE OINT 30 GM TUBE 1 APPLIC TOPICAL (16:10)
--- NOTE | 2022-06-10 16:28 | PC.NURSE ---
Patient IV access lost in middle of vancomycin infusion. Unable to restart due to difficult stick. Midline peripheral IV placed. Discussed with pharmacy and okay to continue with next dose.
[2022-06-10] MEDS: HYDROcodone/acetaminophen (*CRX) 5-325 MG TABLET 2 TAB PO (18:10)
[2022-06-10] MEDS: FERROUS SULFATE 324 MG TABLET PO (18:11)
[2022-06-10] MEDS: SALINE LOCK FLUSH 10 ML IV PUSH (20:20)
[2022-06-10 20:45] VITALS: BP 117/63; PULSE 84; RESP 18; TEMP 36.8; O2SAT 95
[2022-06-11] MEDS: MORPHINE SULFATE (*CRX) 2 MG/ML INJ IV PUSH ×5 (00:25→18:11)
[2022-06-11 06:00] VITALS: BP 115/66; PULSE 84; RESP 18; TEMP 36.6; O2SAT 94
[2022-06-11] MEDS: HYDROcodone/acetaminophen (*CRX) 5-325 MG TABLET 2 TAB PO ×2 (06:29→21:12)
--- NOTE | 2022-06-11 07:49 | PM.IMPN ---
Progress Note: A&P Assessment and Plan (1) Overdose: Code(s): T50.901A - Poisoning by unspecified drugs, medicaments and biological substances, accidental (unintentional), initial encounter Status: Acute Assessment and Plan: UDS positive for methamphetamines, benzodiazepines and cannabinoids. Currently back to his baseline. Will monitor. (2) Leukocytosis: Code(s): D72.829 - Elevated white blood cell count, unspecified Status: Acute Assessment and Plan: CT abdomen pelvis with chronic decubitus ulcers with chronic osteomyelitis as well as ground glass opacities concerning for pneumonia. Suprapubic catheter replaced with temporary tidwell catheter and urine has cleared. UCX with mixed chad. BCX with no growth. Toe wounds open to air with no bleeding or drainage. WCX growing gram positive cocci. Called and spoke with Gena Casiano, who said the sensitivities for the wound culture would be finished tomorrow. Clinically improved. Discussed patient with ID pharmacist and will de-escalate antibiotics to doxycycline. -Doxycycline 100 mg IV BID (3) Necrotic toes: Code(s): I96 - Gangrene, not elsewhere classified Status: Acute Assessment and Plan: Wounds do not appear to be infected. Appreciate General Surgery recommendations. Will continue wound care and monitor. Patient will need to follow up with [facility] wound clinic after discharge. (4) Anemia: Code(s): D64.9 - Anemia, unspecified Status: Acute Assessment and Plan: -Ferrous sulfate BID (5) Decubitus ulcer: Code(s): L89.90 - Pressure ulcer of unspecified site, unspecified stage Status: Acute Assessment and Plan: CT abdomen pelvis as noted above. Will continue wound care. (6) Lower obstructive uropathy: Code(s): N13.9 - Obstructive and reflux uropathy, unspecified Status: Acute Assessment and Plan: Bilateral nephrostomy tubes. Suprapubic catheter replaced by temporary tidwell catheter. Patient will need to follow up with his Urologist at [facility] for permanent replacement. Patient reporting increasing amount of urine leakage that urology suspects is due to spasm around the catheter. CT cystogram completed today does not show a fistula but Urology recommends transfer to [facility]. -Called [facility] for transfer - awaiting call back from Urology -[facility] is currently not accepting patient transfer requests as they are at capacity -Appreciate Urology recommendations (7) Urinary retention: Code(s): R33.9 - Retention of urine, unspecified Status: Chronic Assessment and Plan: See above. (8) Paraplegia: Code(s): G82.20 - Paraplegia, unspecified Status: Chronic Assessment and Plan: Has chronic pain related to muscle spasms from paraplegia 10/18 [facility] December 2019. -continue with gabapentin -continue with muscle relaxers (9) Anxiety: Code(s): F41.9 - Anxiety disorder, unspecified Status: Chronic Assessment and Plan: -Continue with hydroxyzine (10) Depression: Code(s): F32.9 - Major depressive disorder, single episode, unspecified Status: Chronic Assessment and Plan: Overdose was not intentional. No SI. Patient endorses running out of pain medication and taking heroine for pain relief. (11) Urinary tract infection: Qualifiers: Hematuria presence: with hematuria Urinary tract infection type: acute cystitis Qualified Code(s): N30.01 - Acute cystitis with hematuria Code(s): N39.0 - Urinary tract infection, site not specified Status: Acute Assessment and Plan: Urine culture with mixed chad. Subjective Date/time seen: 06/11/22 07:49 Patient has questions about his fluid intake. He says he needs more fluids. He says his family will bring in any fluids or food he wants to drink.
[2022-06-11 09:12] LABS: Basophils Percent Auto 0.2 % (0.2-1.2); Eosinophils Absolute Auto 0.5 K/mm3 (0-0.3); Eosinophils Percent Auto 3.4 % (0-4.4); Hematocrit 34.7 % (42.0-52.0); Hemoglobin 9.6 g/dL (14.0-18.0); Immature Granulocyte Absolute 0.62 K/mm3 (0.00-0.031); Immature Granulocyte Percent A 4.5 % (0-0.5); Lymphocytes Absolute Auto 2.49 K/mm3 (0.9-3.2); Lymphocytes Percent Auto 18.2 % (18.3-44.2); Mean Corpuscular HGB Conc 27.7 g/dl (32-36); Mean Corpuscular Hemoglobin 18.6 pg (26-34); Mean Corpuscular Volume 67.2 fl (80-100); Mean Platelet Volume 7.7 fl (7.4-10.4); Monocytes Absolute Auto 0.7 K/mm3 (0.1-0.6); Monocytes Percent Auto 4.8 % (2.6-8.5); Neutrophils Absolute Auto 9.4 K/mm3 (1.3-6.7); Neutrophils Percent Auto 68.9 % (45.5-73.1); Nucleated Red Blood Cells Perc 0.1 % (0.0-0.2); Platelet Count Result 497 k/mm3 (150-375); Red Blood Count 5.16 M/mm3 (4.6-6.20); Red Cell Distribution Width 19.1 % (11.5-14.5); White Blood Count 13.7 K/mm3 (4.5-10.0)
[2022-06-11 09:25] LABS: Anion Gap 10 mmol/L (8-16); Blood Urea Nitrogen 12 mg/dL (9-20); CRP 7.1 mg/dL (<1.0); Calcium 8.5 mg/dL (8.4-10.2); Carbon Dioxide 26 mmol/L (22-30); Chloride 101 mmol/L (98-107); Estimated CRCL calculation 162 ml/min; Estimated Glomerular Filt Rate > 60; Glucose 162 mg/dL (65-110); Potassium 3.8 mmol/L (3.4-5.0); Sodium 137 mmol/L (137-145)
[2022-06-11 09:33] LABS: Vancomycin Trough 15.3 ug/mL (10.0-20.0)
--- NOTE | 2022-06-11 10:19 | PC.NURSE ---
pt. left floor for CT-via bed at 10:18. IV saline locked
--- NOTE | 2022-06-11 10:38 | PC.NURSE ---
pt. refused morning medications until he had pain medication. It was not time for his pain medication as he had been given pain medicine at 06:30. I explained to him that it was not time fo rmore pain medication yet, at this time the patient became hostile by screaming at this nurse and calling names. At that time the nurse corporate services manager, Bakari was outside and heard conversation and went in to de-escalate the issue. Pt. proceeded to call Bakari names, screaming and cursing. This nurse returned roughly 10 minutes later and patient apologized for his behavior. This nurse explained to patient that he was at risk for narcotic overdose/respiratory depression if I administered narcotics too closely together. This nurse told the patient that she would call the Doctor for clarification of narcotic times and dosing parameters. This nurse spoke with Dr. Garcia and she approved alternating the morphine and [place] every 3 hours.
--- NOTE | 2022-06-11 11:09 | PC.NURSE ---
pt. returned from CT at 11:08 via bed.
[2022-06-11] MEDS: FERROUS SULFATE 324 MG TABLET PO ×2 (11:16→18:11)
[2022-06-11] MEDS: GABAPENTIN 300 MG CAPSULE PO ×3 (11:16→18:11)
[2022-06-11] MEDS: NICOTINE (*PBKC) 21 MG PATCH 1 PATCH TRANSDERM (11:21)
--- NOTE | 2022-06-11 12:41 | WPDUROPN2 ---
Progress Note: A&P Assessment and Plan (1) Cystitis: Code(s): N30.90 - Cystitis, unspecified without hematuria Status: Acute (2) Pyelitis: Code(s): N12 - Tubulo-interstitial nephritis, not specified as acute or chronic Status: Acute (3) Open wound of scrotum: Code(s): S31.30XA - Unspecified open wound of scrotum and testes, initial encounter Status: Acute Assessment and Plan: No fistula noted on Cystogram. (4) Urinary retention: Code(s): R33.9 - Retention of urine, unspecified Status: Chronic Assessment and Plan: Patient should f/u with his urologist for replacement of SP tube. I recommend transfer to [place] for further care, as our Urology group cannot accommodate all of his urologic needs at this time. Subjective Subjective Date/Time Seen: 06/11/22 12:41 The patient continues to leak from a wound in his scrotum which is thought to be a fistula, however a Cystogram was done today and doesn't confirm a fistula. His tidwell catheter doesn't appear to be draining much urine. His nephrostomy tubes continue to drain well and urine is much more clear on antibiotics. His urine culture was negative from admission. Review of Systems Respiratory: Respiratory: Reports no additional respiratory complaints Gastrointestinal: Gastrointestinal: Denies abdominal pain, Denies nausea and Denies vomiting Genitourinary: Genitourinary: Denies hematuria, Denies dysuria, Denies flank pain, Denies urinary frequency, Denies urinary hesitancy and Denies urinary urgency Exam Const: General: cooperative Resp: Effort & Inspection: normal respiratory effort Cardio: Rate: regular rate GI: GI Palp: Yes Soft to palpation and No Tenderness to palpation present (GI) : General: Yes no CVA tenderness Scrotum: other (The patient has urine leaking from his scrotal wound.) Urinary Catheter: Urinary Catheter: patent and draining and urine clear Extrem: Right lower extremity: no edema Left lower extremity: no edema Objective Data Vital Signs Vital Signs: Vital Signs - 24 hr 06/10/22 20:45 06/10/22 20:00 06/11/22 06:00 Temperature 98.3 F 97.9 F Pulse Rate 84 84 Respiratory Rate 18 18 Blood Pressure 117/63 115/66 Pulse Oximetry 95 94 Oxygen Delivery Room Air Intake/Output Intake/Output: Intake & Output 06/08/22 06/09/22 06/10/22 06/11/22 23:59 23:59 23:59 23:59 Intake Total 3060 6400 3736 1100 Output Total 3550 3300 6800 1825 Balance -490 4560 -1979 -725 Meds/Results Medications: Active Medications Generic Name Dose Route Start Last Admin Trade Name Freq PRN Reason Stop Dose Admin Acetaminophen 500 mg 06/07/22 00:08 06/07/22 07:06 Acetaminophen 500 Mg Tablet PO 500 mg Q6-8H PRN Administration Pain (Scale Score 4-6) Hydrocodone Bitart/Acetaminophen 1 tab 06/08/22 22:43 06/10/22 14:28 Hydrocodone/Acetaminophen (*Crx) 5-325 Mg Tablet PO 1 tab Q4H PRN Administration Pain 3-6 Hydrocodone Bitart/Acetaminophen 2 tab 06/10/22 15:12 06/11/22 06:29 Hydrocodone/Acetaminophen (*Crx) 5-325 Mg Tablet PO 2 tab Q6H PRN Administration Pain Rated 7 or Greater Collagenase 1 applic 06/07/22 12:00 06/10/22 16:10 Collagenase Oint 30 Gm Tube TOPICAL 1 applic QAM CLINT Administration Enoxaparin Sodium 40 mg 06/08/22 17:30 06/11/22 11:19 Enoxaparin 40 Mg/0.4 Ml Syringe SUB-Q Not Given DAILY [facility] Ferrous Sulfate 324 mg 06/08/22 17:00 06/11/22 11:16 Ferrous Sulfate 324 Mg Tablet PO 324 mg BIDWM CLINT Administration Gabapentin 300 mg 06/07/22 09:00 06/11/22 11:16 Gabapentin 300 Mg Capsule PO 300 mg TID CLINT Administration Guaifenesin/Dextromethorphan 10 ml 06/08/22 23:30 06/09/22 00:03 Guaifenesin/Dextromethorphan 10 Ml Udc PO 10 ml Q4H PRN Administration Cough Hydroxyzine HCl 25 mg 06/06/22 22:38 Hydroxyzine Hcl 25 Mg Tablet PO Q6H PRN Itching Va
[2022-06-11 14:00] VITALS: BP 123/57; PULSE 83; RESP 18; TEMP 36.4; O2SAT 98
[2022-06-11] MEDS: SILVERGEL (ELTA) 45 ML 1 APPLIC TOPICAL (14:17)
[2022-06-11] MEDS: COLLAGENASE OINT 30 GM TUBE 1 APPLIC TOPICAL (14:17)
[2022-06-11] MEDS: SALINE LOCK FLUSH 10 ML IV PUSH (14:29)
[2022-06-11] MEDS: polyethylene glycoL 3350 17 GM POWD.PACK PO (14:29)
[2022-06-11] MEDS: DOXYCYCLINE 100 MG/NS 100 ML 100 MG/100 ML BAG IVPB (21:07)
[2022-06-11 21:58] VITALS: BP 117/64; PULSE 81; RESP 18; TEMP 36.6; O2SAT 97
[2022-06-12] MEDS: SALINE LOCK FLUSH 10 ML IV PUSH ×2 (00:26→14:51)
[2022-06-12] MEDS: MORPHINE SULFATE (*CRX) 2 MG/ML INJ IV PUSH ×4 (00:33→14:50)
[2022-06-12] MEDS: HYDROcodone/acetaminophen (*CRX) 5-325 MG TABLET 2 TAB PO (05:40)
[2022-06-12 05:49] LABS: Basophils Absolute Auto 0.1 K/mm3 (0.0-0.1); Basophils Percent Auto 1.1 % (0.2-1.2); Eosinophils Absolute Auto 0.4 K/mm3 (0-0.3); Eosinophils Percent Auto 3.3 % (0-4.4); Hematocrit 33.8 % (42.0-52.0); Hemoglobin 9.2 g/dL (14.0-18.0); Immature Granulocyte Absolute 0.87 K/mm3 (0.00-0.031); Immature Granulocyte Percent A 7.1 % (0-0.5); Lymphocytes Percent Auto 24.4 % (18.3-44.2); Mean Corpuscular HGB Conc 27.2 g/dl (32-36); Mean Corpuscular Hemoglobin 18.7 pg (26-34); Mean Corpuscular Volume 68.8 fl (80-100); Mean Platelet Volume 7.9 fl (7.4-10.4); Monocytes Absolute Auto 1.1 K/mm3 (0.1-0.6); Monocytes Percent Auto 8.7 % (2.6-8.5); Neutrophils Absolute Auto 6.8 K/mm3 (1.3-6.7); Neutrophils Percent Auto 55.4 % (45.5-73.1); Nucleated Red Blood Cells Perc 0.2 % (0.0-0.2); Platelet Count Result 506 k/mm3 (150-375); Red Blood Count 4.91 M/mm3 (4.6-6.20); Red Cell Distribution Width 19.3 % (11.5-14.5); White Blood Count 12.3 K/mm3 (4.5-10.0)
[2022-06-12 06:00] VITALS: BP 111/69; PULSE 82; RESP 20; TEMP 36.3; O2SAT 95
[2022-06-12 06:05] LABS: Anion Gap 9 mmol/L (8-16); Blood Urea Nitrogen 12 mg/dL (9-20); CRP 6.4 mg/dL (<1.0); Calcium 8.6 mg/dL (8.4-10.2); Carbon Dioxide 30 mmol/L (22-30); Chloride 99 mmol/L (98-107); Estimated CRCL calculation 197 ml/min; Estimated Glomerular Filt Rate > 60; Glucose 97 mg/dL (65-110); Potassium 4.4 mmol/L (3.4-5.0); Sodium 138 mmol/L (137-145)
[2022-06-12 06:46] LABS: Hypochromasia 1+ (NORMAL); Platelet Estimate Increased (Adequate)
[2022-06-12 06:47] LABS: Microcytosis 1+ (NORMAL)
[2022-06-12 06:51] LABS: Schistocytes None Seen (NORMAL)
[2022-06-12] MEDS: DOXYCYCLINE 100 MG/NS 100 ML 100 MG/100 ML BAG IVPB (09:03)
[2022-06-12] MEDS: FERROUS SULFATE 324 MG TABLET PO (09:03)
[2022-06-12] MEDS: GABAPENTIN 300 MG CAPSULE PO ×2 (09:03→12:33)
[2022-06-12] MEDS: NICOTINE (*PBKC) 21 MG PATCH 1 PATCH TRANSDERM (09:04)
[2022-06-12] MEDS: polyethylene glycoL 3350 17 GM POWD.PACK PO (09:04)
[2022-06-12] MEDS: COLLAGENASE OINT 30 GM TUBE 1 APPLIC TOPICAL (09:05)
[2022-06-12] MEDS: SILVERGEL (ELTA) 45 ML 1 APPLIC TOPICAL (09:05)
[2022-06-12] MEDS: SOLIFENACIN 5 MG TABLET PO (12:33)
[2022-06-12 14:00] VITALS: BP 114/54; PULSE 77; RESP 16; TEMP 36.3; O2SAT 95
--- NOTE | 2022-06-12 15:45 | PM.DS ---
DS: Admitting Diagnosis Discharge Date 06/12/22 Admitting Diagnosis Overdose DS: Discharge Diagnosis Discharge Diagnosis (1) Overdose: Code(s): T50.901A - Poisoning by unspecified drugs, medicaments and biological substances, accidental (unintentional), initial encounter Status: Acute Assessment and Plan: UDS positive for methamphetamines, benzodiazepines and cannabinoids. Currently back to his baseline. Due to patient being out of pain medication, will dispense pain medication to be taken until patient can follow up with primary care physician. (2) Leukocytosis: Code(s): D72.829 - Elevated white blood cell count, unspecified Status: Acute Assessment and Plan: CT abdomen pelvis with chronic decubitus ulcers with chronic osteomyelitis as well as ground glass opacities concerning for pneumonia. Suprapubic catheter replaced with temporary tidwell catheter and urine has cleared. UCX with mixed chad. BCX with no growth. Toe wounds open to air with no bleeding or drainage. WCX growing gram positive cocci. Called and spoke with Gena Casiano, who said the sensitivities for the wound culture would be finished tomorrow. Clinically improved. Discussed patient with ID pharmacist andl de-escalated antibiotics to doxycycline. Leukocytosis continued downtrending, so for discharge doxycyline 100 mg po BID will be given for an additional 7 days for a total of 14 days treatment. (3) Necrotic toes: Code(s): I96 - Gangrene, not elsewhere classified Status: Acute Assessment and Plan: Wounds do not appear to be infected. Appreciate General Surgery recommendations. Will continue wound care and monitor. Patient will need to follow up with [facility] wound clinic after discharge. (4) Anemia: Code(s): D64.9 - Anemia, unspecified Status: Acute Assessment and Plan: -Ferrous sulfate BID (5) Decubitus ulcer: Code(s): L89.90 - Pressure ulcer of unspecified site, unspecified stage Status: Acute Assessment and Plan: CT abdomen pelvis as noted above. Will continue wound care. (6) Lower obstructive uropathy: Code(s): N13.9 - Obstructive and reflux uropathy, unspecified Status: Acute Assessment and Plan: Bilateral nephrostomy tubes. Suprapubic catheter replaced by temporary tidwell catheter. Patient will need to follow up with his Urologist at [facility] for permanent replacement. Patient reporting increasing amount of urine leakage that urology suspects is due to spasm around the catheter. CT cystogram completed today does not show a fistula but Urology recommends transfer to [facility]. Discussed patient with [facility] urologist, who declined to admit the patient and recommended starting an antispasmodic medication to help reduce the leakage of urine around the tidwell catheter. -Vesicare 5 mg daily started on day of discharge -[facility] is currently not accepting patient transfer requests as they are at capacity -Appreciate Urology recommendations (7) Urinary retention: Code(s): R33.9 - Retention of urine, unspecified Status: Chronic Assessment and Plan: See above. (8) Paraplegia: Code(s): G82.20 - Paraplegia, unspecified Status: Chronic Assessment and Plan: Has chronic pain related to muscle spasms from paraplegia 10/18 W December 2019. -continue with gabapentin -continue with muscle relaxers (9) Anxiety: Code(s): F41.9 - Anxiety disorder, unspecified Status: Chronic Assessment and Plan: -Continue with hydroxyzine (10) Depression: Code(s): F32.9 - Major depressive disorder, single episode, unspecified Status: Chronic Assessment and Plan: Overdose was not intentional. No SI. Patient endorses running out of pain medication and taking heroine for pain relief. (11) Urinary tract infection:
--- NOTE | 2022-06-12 17:12 | PC.NURSE ---
at approximately 08:00 this nurse went into patients room at the request of the patient. He proceeded to ask for pain medication, this nurse told patient that he had just been given a narcotic pain reliever roughly 2 hours prior and that per the medication order parameters, he could not have more pain medication yet. The patient proceeded to call this nurse a fucking bitch . At that time, this nurse walked out of the room. Patient repeatedly calls the RN station screaming profanities at anyone that answers the phone. Patient can be heard through closed door screaming profanities and throwing items.
--- NOTE | 2022-06-12 18:04 | PC.NURSE ---
at 18:04 this nurse attempted to go over discharge papers with patient. Patient refused to sign acknowledgement of discharge information. Patient again was belligerant and screaming profanities at this nurse.
--- NOTE | 2022-06-12 18:05 | PC.NURSE ---
Katie RN called stating patient is refusing discharge wound photos. I explained to the patient why our facility take discharge wound photos. Patient then stated that he is not letting us take a picture of his ass and private area because he didn't even consent to have them taken on admission and that is against our policy. Patient requested list of names so that he can give them to his director executive communications to oscar us. Patient then voiced his opinion about discharge, complaining that he shouldn't leave because he is still leaking urine and is wet all the time. I reiterated to the patient that our Urology department cannot meet his needs related to this and that he has to follow up with his specialist in [place]. Patient continued to argue with me about discharge wound photos, list of names, and his urine problem, but still wants to discharge tonight. I offered to talk to the MD about his concerns related to discharge, but patient refused and still wants to be discharged.
--- NOTE | 2022-06-12 19:33 | PC.NURSE ---
MIDLINE CATHETER REMOVED INTACT, CATHETER WAS PLACED INTO THE SHARPS CONTAINER ON ACCIDENT BEFORE MEASUREMENTS WERE TAKEN
[2022-06-13 12:35] LABS: HSV 1 IgM Screen Negative (Negative); HSV 2 IgM Screen Negative (Negative)
== END 2022-06-12 19:30 | disposition home or self-care (01) | DRG 812 ==
LOC: ANHED 17:44 → ANH3MEDSUR 20:19
PROVIDERS: Nurse Practitioner; Physician Assistant; Admitting Provider Internal Medicine; Emergency Provider Emergency Medicine; Visit Provider Family Medicine
DX: T50.991A Poisoning by other drugs, medicaments and biological substances, accidental (unintentional), initial encounter (principal); I96 Gangrene, not elsewhere classified; L89.154 Pressure ulcer of sacral region, stage 4; G82.20 Paraplegia, unspecified; M86.651 Other chronic osteomyelitis, right thigh; M86.652 Other chronic osteomyelitis, left thigh; M41.9 Scoliosis, unspecified; Z93.6 Other artificial openings of urinary tract status; T50.901A Poisoning by unspecified drugs, medicaments and biological substances, accidental (unintentional), initial encounter; R33.9 Retention of urine, unspecified; N39.0 Urinary tract infection, site not specified; F17.210 Nicotine dependence, cigarettes, uncomplicated; D72.829 Elevated white blood cell count, unspecified; D50.9 Iron deficiency anemia, unspecified; N43.2 Other hydrocele; F32.9 Major depressive disorder, single episode, unspecified; Z20.822 Contact with and (suspected) exposure to COVID-19; S31.30XA Unspecified open wound of scrotum and testes, initial encounter; X58.XXXA Exposure to other specified factors, initial encounter; B36.8 Other specified superficial mycoses; F41.9 Anxiety disorder, unspecified; N13.9 Obstructive and reflux uropathy, unspecified; B95.7 Other staphylococcus as the cause of diseases classified elsewhere; W34.00XS Accidental discharge from unspecified firearms or gun, sequela
CPT/HCPCS: 36415; 36569; 51600; 71045; 73620; 74177; 74430; 76870; 80048; 80053; 80202; 81001; 82565; 82728; 82948; 83540; 83550; 83605; 83615; 83735; 84443; 85025; 85046; 85055; 85610; 85730; 86140; 86695; 86696; 87040; 87070; 87086; 87088; 87205; 87255; 87491; 87591; 87661; 93005; 93976; 99285; A9270; C1751; C9803; J1650; J2270; J2543; J3370; Q9967; U0003; U0005